=== PATIENT | female | born 2000 | race Caucasian/White ===

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

== ENCOUNTER → 2020-07-31 13:04 | Outpatient (CLI) | payer OTHER, SELFPAY ==
[2020-07-31 11:03] VITALS: BMI 25.7
[2020-07-31 16:01] LABS: Neisserai gonorrhoeae by PCR Negative (Negative); Probe Check PASS
[2020-07-31 16:03] LABS: Chlamydia Trachomatis by PCR POSITIVE (Negative)
== END ==
PROVIDERS: PCP Pediatrics; Referring Provider Nurse Practitioner Women's Health; Visit Provider Nurse Practitioner Women's Health
DX: Z11.3 Encounter for screening for infections with a predominantly sexual mode of transmission (principal)
CPT/HCPCS: 87491; 87591

== ENCOUNTER → 2020-08-28 16:38 | Outpatient (CLI) | payer OTHER, SELFPAY ==
[2020-08-28 13:46] VITALS: BMI 25.4
[2020-08-28 19:43] LABS: Chlamydia Trachomatis by PCR Negative (Negative); Neisserai gonorrhoeae by PCR Negative (Negative); Probe Check PASS; Sample Adequacy Control PASS; Specimen Processing Control PASS
== END ==
PROVIDERS: PCP Pediatrics; Referring Provider Obstetrics & Gynecology; Visit Provider Obstetrics & Gynecology
DX: A74.9 Chlamydial infection, unspecified (principal)
CPT/HCPCS: 87491; 87591

== ENCOUNTER → 2023-01-24 | Outpatient (CLI) | payer OTHER, MEDICAID, SELFPAY ==
[2023-01-24 15:58] LABS: Absolute Neutrophil Count 6.4 X10^3/uL (2.0-7.7); Basophil# 0.03 X10^3/uL; Basophil% 0.4 % (0-1); Eosinophil# 0.03 X10^3/uL; Eosinophils% 0.4 % (0-5); Hematocrit 37.6 % (37-47); Hemoglobin 12.9 g/dL (12.0-15.0); Lymphocyte % 19.9 % (19-41); Mean Corp Hgb Conc 34.3 g/dL (32-36); Mean Corpuscular Hgb 32.4 pg (27.0-32.0); Mean Corpuscular Volume 94.5 fL (81-99); Mean Platelet Vol. 9.8 fl (6.2-12.0); Monocyte# 0.38 X10^3/uL; Monocyte% 4.4 % (0-10); NRBC Flagged by Analyzer 0 % (0-5); Neutrophil # 6.38 X10^3/uL (2.7-7.7); Neutrophil % 74.4 % (47-70); Platelet Count 201 K/mm3 (150-450); RBC Distribution Width CV 11.9 % (11.6-14.6); RBC Distribution Width SD 41.5 fl (35.1-43.9); Red Blood Count 3.98 M/mm3 (4.2-5.4); White Blood Count 8.6 K/mm3 (4.4-11.0)
[2023-01-24 16:14] LABS: NATERA MAILED SPECIMEN
[2023-01-24 17:51] LABS: HIV - WCH Non-Reactive (Nonreactive); Hepatitis B Surface Antigen Non-Reactive (Nonreactive); Hepatitis C Antibody Non-Reactive (Nonreactive); Rubella IgG Reactive (Nonreactive); Syphilis Antibodies Non-reactive
[2023-01-27 21:12] LABS: Chlamydia By Nucleic Acid AMP Negative (Negative); Gonococcus By Nucleic Acid AMP Negative (Negative)
== END | disposition home or self-care (01) ==
PROVIDERS: PCP Pediatrics; Referring Provider Obstetrics & Gynecology; Visit Provider Obstetrics & Gynecology
DX: Z34.81 Encounter for supervision of other normal pregnancy, first trimester (principal)
CPT/HCPCS: 36415; 85025; 86703; 86762; 86780; 86803; 86850; 86900; 86901; 87086; 87088; 87340; 87491; 87591

== ENCOUNTER → 2023-05-16 | Outpatient (CLI) | payer OTHER, MEDICAID, SELFPAY ==
[2023-05-16 12:09] LABS: Absolute Lymphocyte Count 1.29 X10^3/uL (0.83-4.51); Absolute Neutrophil Count 7.1 X10^3/uL (2.0-7.7); Basophil# 0.05 X10^3/uL; Basophil% 0.5 % (0-1); Eosinophil# 0.04 X10^3/uL; Eosinophils% 0.4 % (0-5); Hematocrit 32.6 % (37-47); Hemoglobin 10.5 g/dL (12.0-15.0); Lymphocyte # 1.29 X10^3/ul (0.83-4.51); Lymphocyte % 13.8 % (19-41); Mean Corp Hgb Conc 32.2 g/dL (32-36); Mean Corpuscular Hgb 31.1 pg (27.0-32.0); Mean Corpuscular Volume 96.4 fL (81-99); Mean Platelet Vol. 9.9 fl (6.2-12.0); Monocyte# 0.49 X10^3/uL; Monocyte% 5.3 % (0-10); NRBC Flagged by Analyzer 0 % (0-5); Neutrophil # 7.09 X10^3/uL (2.7-7.7); Neutrophil % 76.1 % (47-70); Platelet Count 168 K/mm3 (150-450); RBC Distribution Width CV 12.6 % (11.6-14.6); RBC Distribution Width SD 44.3 fl (35.1-43.9); Red Blood Count 3.38 M/mm3 (4.2-5.4); White Blood Count 9.3 K/mm3 (4.4-11.0)
[2023-05-16 12:10] LABS: Glucose Challenge Gest 1H 50g 151 mg/dL (70-140)
[2023-05-16 12:42] LABS: HIV - WCH Non-Reactive (Nonreactive); Syphilis Antibodies Non-reactive
== END | disposition home or self-care (01) ==
LOC: LAB 11:13
PROVIDERS: PCP Pediatrics; Visit Provider Obstetrics & Gynecology
DX: Z13.1 Encounter for screening for diabetes mellitus (principal); Z3A.16 16 weeks gestation of pregnancy
CPT/HCPCS: 36415; 82950; 85025; 86703; 86780

== ENCOUNTER → 2023-05-27 | Outpatient (CLI) | payer OTHER, MEDICAID, SELFPAY ==
[2023-05-27 07:31] LABS: Glucose GTT-Gestation. Fasting 93 mg/dL (<105)
[2023-05-27 09:07] LABS: Glucose GTT-Gestational 1 Hr 171 mg/dL (<190)
[2023-05-27 09:39] LABS: Glucose GTT-Gestational 2 Hr 136 mg/dL (<165)
[2023-05-27 10:41] LABS: Glucose GTT-Gestational 3 Hr 117 L (<145)
== END | disposition home or self-care (01) ==
LOC: LAB 06:56
PROVIDERS: PCP Pediatrics; Referring Provider Obstetrics & Gynecology; Visit Provider Obstetrics & Gynecology
DX: Z13.1 Encounter for screening for diabetes mellitus (principal)
CPT/HCPCS: 36415; 82951; 82952

== ENCOUNTER 2023-06-10 13:35 | Outpatient (CLI) | payer OTHER, MEDICAID, SELFPAY ==
[2023-06-10 13:46] VITALS: BP 119/74; PULSE 101; PULSE 116; O2SAT 96
[2023-06-10 14:00] VITALS: TEMP 36.7; O2SAT 97
[2023-06-10 14:18] VITALS: BMI 31.8
[2023-06-10] MEDS: Lactated Ringers 1,000 ML 999 ML IV (14:20)
--- NOTE | 2023-06-10 14:27 | PN_ITS ---
Progress Note Patient presents for triage evaluation secondary to uterine contractions FHT: 140 Moderate variability reactive no decelerations category I tracing [place]: 2-3 Contractions Assessment and plan: FFN, GBS collected, Start IV and obtain labs and give IV fluid bolus, Start Procardia 10mg q 20minutes x 4 doses . See problem list details for additional plan information. Dr Melgar aware of above assessment and plan and agrees with plan due to Dr Rivera being in surgery. Referred to physician care due to labor. Assessment & Plan Assessment/Plan (1) uterine contractions: PLAN: see above for plan of care (2) Abnormal glucose: (3) Anemia: (4) : QUALIFIERS: Weeks of gestation: 30 weeks Qualified Code(s): Z3A.30 - 30 weeks gestation of (5) Supervision of normal : Visit Charges Office Visits / Consults: 52761 OV L3 Est Multi Select Codes Urinary/Genital Urinary/Genital CPT Codes: 26302-86 non-stress test Interp
[2023-06-10 14:32] LABS: Absolute Lymphocyte Count 1.54 X10^3/uL (0.83-4.51); Absolute Neutrophil Count 7.7 X10^3/uL (2.0-7.7); Basophil# 0.03 X10^3/uL; Basophil% 0.3 % (0-1); Eosinophil# 0.04 X10^3/uL; Eosinophils% 0.4 % (0-5); Hematocrit 35.1 % (37-47); Hemoglobin 11.6 g/dL (12.0-15.0); Lymphocyte # 1.54 X10^3/ul (0.83-4.51); Lymphocyte % 15.2 % (19-41); Mean Corpuscular Hgb 31.4 pg (27.0-32.0); Mean Corpuscular Volume 94.9 fL (81-99); Mean Platelet Vol. 9.4 fl (6.2-12.0); Monocyte# 0.59 X10^3/uL; Monocyte% 5.8 % (0-10); NRBC Flagged by Analyzer 0 % (0-5); Neutrophil # 7.68 X10^3/uL (2.7-7.7); Neutrophil % 75.8 % (47-70); Platelet Count 178 K/mm3 (150-450); RBC Distribution Width CV 13.9 % (11.6-14.6); RBC Distribution Width SD 46.9 fl (35.1-43.9); White Blood Count 10.1 K/mm3 (4.4-11.0)
[2023-06-10] MEDS: Betamethasone/Betamethasone 30 MG/5 ML Vial 12 MG IM (14:59)
[2023-06-10] MEDS: NIFEdipine 10 MG Capsule PO ×5 (15:01→20:14)
[2023-06-10 15:02] LABS: Fetal Fibronectin Negative; Record Kit Lot#, fFN E3050
--- NOTE | 2023-06-10 15:12 | US_ITS ---
STUDY: SECOND AND THIRD TRIMESTER OBSTETRICAL ULTRASOUND REASON FOR EXAM: Female, 22 years old growth ultrasound with cervical length -- 32.1 weeks with labor LMP: TECHNIQUE: Transabdominal TECHNICAL QUALITY: Adequate. PRIOR ULTRASOUND: None. FINDINGS: There is a single intrauterine fetus. The fetus is in a cephalic presentation. There is demonstrated cardiac activity with a heart rate of 158 bpm. There is a normal amniotic fluid volume. The largest amniotic fluid pocket measures 6.8 cm. The amniotic fluid index (BECKY) is 14.7 cm. The placenta is posterior There are Grade 1 placental changes. The cervix measures 4.4 cm in length. The bilateral adnexal regions are normal. BIOMETRY: BPD: 8.9 cm: 36 weeks, 1 days HC: 32.4 cm: 36 weeks, 5 days AC: 30.2 cm: 34 weeks, 1 days FL: 6.3 cm: 32 weeks, 3 days CI: 0.78 FL/BPD: 0.70 FL/HC: FL/AC: 0.12 HC/AC: 1.1 age by current US: 35 weeks, 5 days. ROBERTO by current US: July 10, 2023. Estimated weight: 2348 grams, +/- 352 grams, 92 %. Age by LMP: 32 weeks, 1 days. ROBERTO by LMP: August 04, 2023. ANATOMY: Not studied at this time due to age IMPRESSION: Viable intrauterine gestation approximately 36 gestational age. No significant abnormality Electronically Signed: David Pedraza MD at 17:19 EST , STUDY: Second and third TRIMESTER OBSTETRICAL ULTRASOUND REASON FOR EXAM: Female, 22 years old growth ultrasound with cervical length -- 32.1 weeks with labor LMP: TECHNIQUE: Transvaginal and transabdominal TECHNICAL QUALITY: Adequate. PRIOR ULTRASOUND: None. FINDINGS: Intrauterine gestation is noted currently in cephalic position. Cardiac activity seen with heart rate of 158 bpm. Amniotic fluid level is normal with largest pocket 6.8 cm and amniotic fluid index 14.7 Placenta is posterior and fundal. Cervical length is 4.4 cm. Cervical os is closed] age by current ultrasound is 35 weeks 5 days with ROBERTO July 10, 2023. Estimated weight is 23 48 g plus/-352 age by LMP is 32 weeks 1 day with ROBERTO August 04, 2023 US/OB Limited With Biometrics IMPRESSION: Viable intrauterine gestation approximately 36 weeks gestational age with no significant abnormality Electronically Signed: David Pedraza MD at 17:23 EST ,
[2023-06-10] MEDS: Lactated Ringers 1,000 ML 125 ML IV (15:20)
[2023-06-10 15:43] LABS: Bacteria 0 SEEN /hpf (None Seen); Mucous, Urine 0 SEEN /hpf (<or=2+); Red Blood Cells-Urine 0 SEEN /hpf (0-5); Squamous Epithelial Cells - UA 0 SEEN /hpf (5-10); White Blood Cells 0 SEEN /hpf (0-5)
[2023-06-10 15:52] LABS: Group B Strep DNA By PCR Negative (Negative); Internal Control PASS; Probe Check PASS; Specimen Processing Control PASS
[2023-06-10 15:58] LABS: Color, Urine Yellow (Yellow); Glucose, Dipstick Normal (Normal); Ketone-Dipstick 15 mg/dl (Negative); Leukocyte Esterase-Dipstick Negative /ul (Negative); Nitrite-Dipstick Negative (Negative); Occult Blood-Urine Negative /ul (Negative); Protein-Dipstick Negative (Negative); Urine Bilirubin Dipstick Negative (Negative); Urine Clarity Clear (Clear); Urine Urobilinogen Normal (Normal)
[2023-06-10 20:05] VITALS: BP 119/61; PULSE 114
[2023-06-10 20:06] VITALS: TEMP 37.1
[2023-06-10 20:07] VITALS: PULSE 112; O2SAT 95
[2023-06-10] MEDS: LACTATED RINGERS 500 ML 999 ML IV (20:14)
[2023-06-11] VITALS (11 sets, daily range): BP systolic 78–113; BP diastolic 42–69; PULSE 88–99; TEMP 36.5–37.1; O2SAT 79–98
[2023-06-11] MEDS: NIFEdipine 10 MG Capsule PO ×3 (00:13→10:31)
[2023-06-11] MEDS: Lactated Ringers 1,000 ML 125 ML IV (02:06)
--- NOTE | 2023-06-11 06:28 | US_ITS ---
HISTORY: 32 weeks 1 day, one variable noted to tracing. TECHNIQUE: Transabdominal pelvic ultrasound was performed. 42 images. COMPARISON: Prior day. FINDINGS: INTRAUTERINE GESTATION(s): Single. PRESENTATION: Cephalic. PLACENTA: Posterior, grade 1. No placenta previa. CERVIX: 3.9 cm, long and closed. HEART MOTION: 136 bpm. AMNIOTIC FLUID INDEX (BECKY): 18.6 cm. Maximum vertical pocket 6.4 cm. BIOPHYSICAL PROFILE (BPP): 8/8 -- Breathin/2. -- Movement: 2/2. -- Tone: 2/2. --BECKY: 2/2. IMPRESSION: Single living intrauterine with a normal biophysical profile score. Electronically Signed: Kely Mariano MD at 10:31 EST , HISTORY: 32 weeks 1 day, one variable noted to tracing. TECHNIQUE: Transabdominal pelvic ultrasound was performed. 42 images. COMPARISON: Prior day. FINDINGS: INTRAUTERINE GESTATION(s): Single. PRESENTATION: Cephalic. PLACENTA: Posterior, grade 1. No placenta previa. CERVIX: 3.9 cm, long and closed. HEART MOTION: 136 bpm. AMNIOTIC FLUID INDEX (BECKY): 18.6 cm. Maximum vertical pocket 6.4 cm. BIOPHYSICAL PROFILE (BPP): 8/8 -- Breathin/2. -- Movement: 2/2. -- Tone: 2/2. --BECKY: 2/2. US/Biophysical Prof W/O Non Stres IMPRESSION: Single living intrauterine with a normal biophysical profile score. Electronically Signed: Kely Mariano MD at 10:32 EST ,
--- NOTE | 2023-06-11 08:17 | PCM.PN.BLA ---
Progress Note pt is sitting up in bed without complaints. She states that the has not felt contractions in a while. Dr. Rivera ordered a BPP this am for a variable decel earlier this am. She denies lof, vaginal bleeding, or dec fm. current tracing: FHT: 130's-140's Moderate variability reactive no decelerations category I tracing [place]: no Contractions A/P: Threatened labor hold procardia this am nurse to call with results of bpp and rpt cervical length will need 2nd dose of celestone at 3pm will discuss using prophylactic procardia at home for a week. pt has office visit on Friday for re-eval and wants to go home if possible between her BPP and next dose of celestone. will decide based on results
[2023-06-11] MEDS: Betamethasone/Betamethasone 30 MG/5 ML Vial 12 MG IM (11:01)
== END 2023-06-11 11:10 | disposition home or self-care (01) ==
LOC: WPOUT 13:41 → WP 13:41
PROVIDERS: Obstetrics & Gynecology; PCP Pediatrics; Referring Provider Advanced Practice Midwife; Visit Provider Advanced Practice Midwife
DX: O60.00 Preterm labor without delivery, unspecified trimester (principal); Z3A.36 36 weeks gestation of pregnancy
CPT/HCPCS: 96360; 96361; 36415; 59025; 59050; 76816; 76817; 76819; 81001; 82731; 85025; 87081; 87086; 87653; 96372; 99221; J7120; G0378; J0702

== ENCOUNTER → 2023-06-17 | Outpatient (CLI) | payer OTHER, MEDICAID, SELFPAY ==
[2023-06-17 08:29] LABS: Glucose GTT-Gestation. Fasting 90 mg/dL (<105)
[2023-06-17 09:24] LABS: Glucose GTT-Gestational 1 Hr 162 mg/dL (<190)
[2023-06-17 10:14] LABS: Glucose GTT-Gestational 2 Hr 174 mg/dL (<165)
[2023-06-17 11:10] LABS: Glucose GTT-Gestational 3 Hr 110 L (<145)
== END | disposition home or self-care (01) ==
LOC: LAB 07:18
PROVIDERS: Referring Provider Obstetrics & Gynecology; Visit Provider Obstetrics & Gynecology
DX: Z13.1 Encounter for screening for diabetes mellitus (principal)
CPT/HCPCS: 36415; 82951; 82952

== ENCOUNTER → 2023-06-27 | Outpatient (CLI) | payer OTHER, MEDICAID, SELFPAY ==
[2023-06-27 11:31] LABS: ROM Internal Control Test YES-OK TO RESULT pt. (Internal QC); ROM Patient Test Negative (Negative); Record Kit Lot#, ROM+ K1374
== END | disposition home or self-care (01) ==
LOC: LABSPEC 11:09
PROVIDERS: Visit Provider Obstetrics & Gynecology
DX: N89.8 Other specified noninflammatory disorders of vagina (principal)
CPT/HCPCS: 84112

== ENCOUNTER 2023-06-30 19:33 | Outpatient (CLI) | payer OTHER, MEDICAID, SELFPAY ==
[2023-06-30 19:43] VITALS: BMI 32.4
[2023-06-30 19:52] VITALS: BP 124/72; PULSE 91; TEMP 36.8; O2SAT 98
[2023-06-30 20:32] LABS: ROM Internal Control Test YES-OK TO RESULT pt. (Internal QC); ROM Patient Test Negative (Negative); Record Kit Lot#, ROM+ K1374
[2023-06-30 21:41] VITALS: PULSE 83; O2SAT 97
--- NOTE | 2023-06-30 22:13 | OB.TRI.PN_ITS ---
Progress Notes Date of Service: 06/30/23 Progress Note: Patient presents for triage evaluation secondary to uterine contractions FHT: 135 Moderate variability reactive no decelerations category I tracing [place]: irregular Contractions Assessment and plan: Reactive NST, no cervical change, reassuring maternal and status patient discharged to home to follow-up at next appointment. See problem list details for additional plan information. Laboratory Studies: Laboratory Tests 06/30/23 Range/Units 20:00 Vag Amniotic Fld Detect Negative (Negative) Charges/Coding Multi Select Codes Urinary/Genital Urinary/Genital CPT Codes: 00939-72 non-stress test Interp Assessment & Plan (1) uterine contractions: COMMENT: no cervical change PLAN: ROM negative No cervical change Cat 1 FHT D/C Home (2) growth abnormality: COMMENT: 92% overall and AC 91- repeat 3 hr gtt NL (3) Abnormal glucose: COMMENT: nl 3 hr GTT (4) Anemia: COMMENT: OTC Fe daily (5) Family history of defect: COMMENT: limb body wall defect for sisters child (6) : QUALIFIERS: Weeks of gestation: 34 weeks Qualified Code(s): Z3A.34 - 34 weeks gestation of COMMENT: neg gbs at 32 weeks, nl anatomy, negative NIPT declined carrier and afp screening, male (7) Supervision of normal : COMMENT: PRR ROBERTO 08/04/23 boy jessicamackenzie boyfriend Isamar, mom- ahsan
== END 2023-06-30 22:20 | disposition home or self-care (01) ==
LOC: WPPAT 19:40 → WP 19:41
PROVIDERS: Visit Provider Advanced Practice Midwife
DX: O60.03 Preterm labor without delivery, third trimester (principal); Z3A.34 34 weeks gestation of pregnancy; O99.02 Anemia complicating childbirth; O99.814 Abnormal glucose complicating childbirth; D64.9 Anemia, unspecified
CPT/HCPCS: 59025; 59050; 84112; 99221; G0378

== ENCOUNTER → 2023-07-11 | Outpatient (CLI) | payer OTHER, MEDICAID, SELFPAY ==
--- OUTSIDE RECORDS SUMMARY | 2023-07-11 12:49 | XMS RPT_ITS | CCD ---
Author Name Unknown Address [address] [place] [address] Organization [facility] Care Team Providers Care Hospice Social Worker Name Role Phone Veale PAC, Merrill A Unavailable Ezequiel Maldonado Unavailable Unavailable Newbill Ezequielcielo Castano Unavailable Unavailable Vitaly Denton Unavailable Unavailable OzzylEzequiel Unavailable Unavailable ArshbillEzequiel Unavailable Unavailable Vitaly Denton Unavailable Unavailable NewbillEzequiel Unavailable Unavailable Vitaly Denton Unavailable Unavailable OzzylEzequiel Unavailable Unavailable CLOVIS VELASQUEZ Attending Unavailab SHIKHA Hays Primary Care Unavai Vitaly Valdovinos Unavailable Unavailable Unavailable No, Physician Primary Care Provider Unavailabl Shikha Eduardo MD Unavailable NO, PHYSICIAN Primary Care Unavailable ALEXIS KIRAN, TITO Referring Unavailable NO, PHYSICIAN Primary Care Unavailable ALEXIS KIRAN, TITO Attending Unavailable ALEXIS KIRAN, TITO Attending Unavailable NO, PHYSICIAN Primary Care Unavailable NO, PHYSICIAN Primary Care Unavailable ALEXIS KIRAN, TITO Attending Unavailable NO, PHYSICIAN Primary Care Unavailable RYANN ESPINOZA JR.EMIAH Attending Unavailable Vitaly Denton Unavailable Unavailable Required, No Pcp Unavailable Unavailable Jorge Carbajal Unavailable Unavailable None, No PCP Unavailable Unavailable Cheryl Prasad Attending Unavailable Mirna Prasadna Referring Unavailable KARELY MARISCALA Attending Unavailable FRIED, MARIETTA Referring Unavailable ASYA, DO SAWYER CALLAHAN Attending Unavailable ASYA, DO SAWYER CALLAHAN Referring Unavailable Cheryl Prasad Attending Unavailable Jorge Carbajal Attending Unavailable ALLISON MAGUIRE Referring ALLISON Lyle Attending Bob Sr, [facility] Unavailable Medications Current Medications Medication Drug Class(es) Dates Sig (Normalized) Sig (Original) Ethinyl Estradiol / Ferrous fumarate / Norethindrone (2 sources) Estrogen Start: 12-12-2021 Junel FE 07/26, 28, 1 mg-20 mcg (21)/75 mg (7) per tablet TAKE 1 TABLET DAILY FOR 21 DAYS, THEN 7 TABLET-FREE DAYS REPEAT. 0 12/12/2021 Active Completed/Discontinued Medications Medication Drug Class(es) Dates Sig (Normalized) Sig (Original) CONTROL (1 source) Start: 11-12-2017 CONTROL CONTROL Merrill Alexsandra Dunnkamron RUEDA Etonogestrel-Ethinyl Estradiol 0.12-0.015 MG/24HR Vaginal Ring (3 sources) Start: 07-20-2021 Etonogestrel-Ethinyl Estradiol 0.12-0.015 MG/24HR Vaginal Ring INSERT 1 RING VAGINALLY DIRECTED. REMOVE AFTER 3 WEEKS & WAIT 7 DAYS BEFORE INSERTING A NEW RING Quantity: 3 Refills: 3 Ordered: 20-Jul-2021 Sawyer Sky DO Start : 20-Jul-2021 Active Kami FE 07/26 1-20 MG-MCG Oral Tablet (1 source) Start: 11-08-2021 take 1 tablet by mouth once daily, then take 7 tablets by mouth once daily Kami FE 07/26 1-20 MG-MCG Oral Tablet TAKE 1 TABLET DAILY FOR 21 DAYS, THEN 7 TABLET-FREE DAYS; REPEAT. Quantity: 1 Refills: 11 Ordered: 08-Nov-2021 Loida ASSISTANT THERAPY AIDE-CNM, ASSISTANT THERAPY AIDE-CAR USHER, [place] Start : 08-Nov-2021 Active ibuprofen 200 mg oral tablet (1 source) Nonsteroidal Anti-inflammatory Drug Start: 11-12-2017 ADVIL 200 MG CAPS as needed for pain IBUPROFEN [id number] Merrill Ramirez MOHIT No Reported Medications (5 sources) No Reported Medications Quantity: 0 Refills: 0 Ordered: 27-Mar-2022 DO Active prochlorperazine 10 mg oral tablet (1 source) Phenothiazine Start: 12-10-2022 take 1 tablet by mouth every six hours Prochlorperazine Maleate 10 MG Oral Tablet TAKE 1 TABLET EVERY 6 HOURS NEEDED FOR NAUSEA. Quantity: 60 Refills: 0 Ordered: 10-Dec-2022 Cheryl Prasad MD Start : 10-Dec-2022 Active Problems Active Problems Problem Classification Problem Date Documented Date Episodic/Chronic Bacterial infection; unspecified site (10 sources) Chlamydial infection; Translations: [Unspecified chlamydial infection] Episodic Contraceptive and procreative management (20 sources) Patient encounter status; Translations: [Unspecified contraceptive management] Episodic Inflammatory diseases of female pelvic organs (10 sources) Bacterial vaginosis; Translations: [Vaginitis and vulvovaginitis, unspecified] Episodic Menstrual disorders (10 sources) Disorder of menstruation; Translations: [Unspecified disorders of menstruation and other abnormal bleeding from female genital tract] Chronic Other connective tissue disease (1 source) Plantar fasciitis of left foot; Translations: [Plantar fascial fibromatosis] Episodic Other connective tissue disease (1 source) Left achilles tendonitis; Translations: [Achilles tendinitis, left leg] Episodic Other female genital disorders (10 sources) Abnormal uterine bleeding; Translations: [Unspecified disorders of menstruation and other abnormal bleeding from female genital tract] Chronic Other female genital disorders (9 sources) Vaginal discharge; Translations: [Leukorrhea, not specified as infective] Episodic Other non-traumatic joint disorders (1 source) Pain in right knee; Translations: [Pain in right knee] Onset: 11-12-2017 11-12-2017 Episodic Other and delivery including normal (5 sources) Urine test positive; Translations: [ examination or test, positive result] Onset: 12-11-2022 Episodic Other screening for suspected conditions (not mental disorders or infectious disease) (20 sources) test negative; Translations: [ examination or test, negative result] Onset: 12-11-2022 Episodic Residual codes; unclassified (10 sources) H/O: miscarriage; Translations: [Personal history of other genital system and obstetric disorders] Episodic Past or Other Problems Problem Classification Problem Date Documented Da te Episodic/Chronic Genitourinary symptoms and ill-defined conditions (7 sources) Scalding pain on urination ; Translations: [Dysuria] Onset: 09-04-2022 09-04-2022 Episodic Residual codes; unclassified (1 source) H/O: ; Translations: [Personal history of other genital system and obstetric disorders] Resolved: 12-10-2022 Episodic Unclassified (1 source) Problem Unclassified (10 sources) Finding of menstrual bleeding; Translations: [Menstruation] Results Test Name Value Interpretation Reference Range Facil ity Vital Signs Date Time Vital Sign Value Performing Clinician Facility 12-10-2022 13:31-0400 Body height 160.02 cm No PCP None [facility] Work Phone: 12-10-2022 13:31-0400 Body mass index (BMI) [Ratio] 26.93 kg/m2 No PCP None [facility] Work Phone: 12-10-2022 13:31-0400 Body surface area Derived from formula 1.72 m2 No PCP None [facility] Work Phone: 12-10-2022 13:31-0400 Body weight 68.95 kg No PCP None [facility] Work Phone: 12-10-2022 13:31-0400 Diastolic blood pressure 64 mm[Hg] No PCP None [facility] Work Phone: 12-10-2022 13:31-0400 Systolic blood pressure 118 mm[Hg] No PCP None [facility] Work Phone: 09-04-2022 19:05-0500 Body height 160 cm No Pcp Required [facility] 09-04-2022 19:05-0500 Body temperature 98.24 [degF] No Pcp Required [facility] 09-04-2022 19:05-0500 Diastolic blood pressure 78 mm[Hg] No Pcp Required [facility] 09-04-2022 19:05-0500 Heart rate 90 /min No Pcp Required [facility] 09-04-2022 19:05-0500 Respiratory rate 16 /min No Pcp Required [facility] 09-04-2022 19:05-0500 SaO2% (BldA) [Mass fraction] 97 % No Pcp Required [facility] 09-04-2022 19:05-0500 Systolic blood pressure 117 mm[Hg] No Pcp Required [facility] 07-25-2022 09:10-0500 Body height 160.02 cm Vitaly Denton [facility] [address] Work Phone: 07-25-2022 09:10-0500 Body mass index (BMI) [Ratio] 27.1 kg/m2 Vitaly Denton [facility] [address] Work Phone: 07-25-2022 09:10-0500 Body surface area Derived from formula 1.73 m2 Vitaly Denton [facility] [address] Work Phone: 07-25-2022 09:10-0500 Body weight 69.4 kg Vitaly Denton [facility] [address] Work Phone: 07-25-2022 09:10-0500 Diastolic blood pressure 70 mm[Hg] Vitaly Denton [facility] [address] Work Phone: 07-25-2022 09:10-0500 Systolic blood pressure 116 mm[Hg] Vitaly Denton [facility] [address] Work Phone: 03-27-2022 15:20-0400 Body height 160.02 cm Vitaly Denton Work Phone: [facility] [address] Work Phone: 03-27-2022 15:20-0400 Body mass index (BMI) [Ratio] 26.59 kg/m2 Vitaly Denton Work Phone: [facility] [address] Work Phone: 03-27-2022 15:20-0400 Body surface area Derived from formula 1.71 m2 Vitaly Denton Work Phone: [facility] [address] Work Phone: 03-27-2022 15:20-0400 Body weight 68.1 kg Vitaly Denton Work Phone: [place] [address] [address] Work Phone: 03-27-2022 15:20-0400 Diastolic blood pressure 74 mm[Hg] Vitaly Denton Work Phone: [place] [address] [place] Work Phone: 03-27-2022 15:20-0400 Systolic blood pressure 100 mm[Hg] Vitaly Denton Work Phone: [address] Work Phone: 03-08-2022 16:13-0400 Body temperature 98.29 [degF] Tito Espinoza Jr., DPM Work Phone: [facility] 03-08-2022 16:13-0400 Diastolic blood pressure 65 mm[Hg] Tito Espinoza Jr., DPM Work Phone: [facility] 03-08-2022 16:13-0400 Heart rate 67 /min Tito Espinoza Jr., DPM Work Phone: [facility] 03-08-2022 16:13-0400 Systolic blood pressure 105 mm[Hg] Tito Espinoza Jr., DPM Work Phone: [facility] 11-08-2021 09:50-0400 Body height 160.02 cm Vitaly Denton Work Phone: [place] [address] [place] Work Phone: 11-08-2021 09:50-0400 Body mass index (BMI) [Ratio] 26.36 kg/m2 Vitaly Denton Work Phone: [place] [address] [place] Work Phone: 11-08-2021 09:50-0400 Body surface area Derived from formula 1.71 m2 Vitaly Jayashree Corrie Work Phone: [place] [address] [place] Work Phone: 11-08-2021 09:50-0400 Body weight 67.5 kg Vitaly M Corrie Work Phone: [place] [address] [place] Work Phone: 11-08-2021 09:50-0400 Diastolic blood pressure 62 mm[Hg] Vitaly Reavesighton Work Phone: [place] [address] [facility] Work Phone: 11-08-2021 09:50-0400 Systolic blood pressure 110 mm[Hg] Vitaly Willetton Work Phone: [place] [address] [facility] Work Phone: 11-01-2021 10:01-0400 Body height 160.02 cm Vitaly Blanc Corrie Work Phone: [place] [address] [facility] Work Phone: 11-01-2021 10:01-0400 Body mass index (BMI) [Ratio] 26.28 kg/m2 Vitayl Reavesighton Work Phone: [place] [address] [facility] Work Phone: 11-01-2021 10:01-0400 Body surface area Derived from formula 1.7 m2 Vitaly Reavesighton Work Phone: [place] [address] [place] Work Phone: 11-01-2021 10:01-0400 Body weight 67.3 kg Vitaly Blanc Corrie Work Phone: [place] [address] [place] Work Phone: 11-01-2021 10:01-0400 Diastolic blood pressure 70 mm[Hg] Vitaly Denton Work Phone: [place] [address] [place] Work Phone: 11-01-2021 10:01-0400 Systolic blood pressure 102 mm[Hg] Vitaly Denton Work Phone: [place] [address] [address] Work Phone: 07-20-2021 11:05-0500 Body height 160.02 cm Vitaly Denton Work Phone: [facility] [place] [address] [place] Work Phone: 07-20-2021 11:05-0500 Body mass index (BMI) [Ratio] 24.6 kg/m2 Vitaly Denton Work Phone: [place] [address] [place] Work Phone: 07-20-2021 11:05-0500 Body surface area Derived from formula 1.66 m2 Vitaly Denton Work Phone: [facility] [address] [place] Work Phone: 07-20-2021 11:05-0500 Body temperature 97.8 [degF] Vitlay Denton Work Phone: [place] [address] [place] Work Phone: 07-20-2021 11:05-0500 Body weight 63 kg Vitaly Denton Work Phone: [place] [address] [place] Work Phone: 07-20-2021 11:05-0500 Diastolic blood pressure 68 mm[Hg] Vitaly Denton Work Phone: [facility] [place] [address] [place] Work Phone: 07-20-2021 11:05-0500 Systolic blood pressure 100 mm[Hg] Vitaly Denton Work Phone: [facility] [place] [address] [place] Work Phone: NEGATED: Highlighted [id number] 14:11-0400 BMI (Body Mass Index) 24 kg/m2 Dickson ARANDA [facility] Work Phone: NEGATED: Highlighted [id number] 14:0400 BP Diastolic 71 mm[Hg] Dickson Micheline OT-C [facility] [place] [facility] Work Phone: NEGATED: Highlighted [id number] 14:110400 BP Systolic 111 mm[Hg] Dickson Micheline OT-C [facility] [place] [facility] Work Phone: NEGATED: Highlighted [id number] 14:040 Height 160.02 cm Dickson Micheline OT-C [facility] Work Phone: NEGATED: Highlighted [id number] 14: Height 160 cm Dickson Micheline OT-C [facility] [place] [facility] Work Phone: NEGATED: Highlighted [id number] 14:11-0400 Pulse (Heart Rate) 71 /min Dickson Micheline OT-C [facility] [place] [facility] Work Phone: NEGATED: Highlighted [id number] Weight 61.24 kg Dickson Micheline OT-C [facility] [place] [facility] Work Phone: NEGATED: Highlighted [id number] 14:0400 Weight 61 kg Dickson Micheline OT-C [facility] [place] [facility] Work Phone: Encounters Encounter Date Encounter Type Care Provider Facility Start: 03-06-2023 ambulatory ALLISON Copeland [facility] Start: 12-11-2022 ambulatory [facility] Facility: [id number] Start: 12-10-2022 Office outpatient vi sit 15 minutes No PCP None [address] Work Phone: Start: 12-10-2022 ambulatory [facility] Facility: [id number] Start: 09-04-2022 End: 09-04-2022 Emergency department patient visit Jorge Carbajal [facility] Start: 09-04-2022 AUDIT No [facility]CP [facility] Work Phone: Start: 07-25-2022 Periodic preventive med est patient 18-39 yrs Vitaly Denton [facility] Work Phone: Start: 07-25-2022 ambulatory MARIETTA MARISCAL Facility:[id number] Start: 03-29-2022 Chart Update Vitaly Lagunas [employer] Work Phone: [facility] Work Phone: Start: 03-28-2022 Chart Update Vitaly Lagunas [employer] Work Phone: [facility] Work Phone: Start: 03-27-2022 Office outpatient vi sit 25 minutes Vitaly Jayashree Denton Work Phone: [facility] Work Phone: Start: 03-27-2022 ambulatory DO SAWYER SKY Fac ility:[id number] Start: 03-08-2022 End: 03-08-2022 ambulatory TITO ESPINOZA JR. [facility] Start: 03-08-2022 End: 03-08-2022 Office outpatient visit 10 minutes Tito Espinoza DPM Work Phone: [facility] Procedures Date Procedure Procedure Detail Performing Clinician Start: 11-12-2017 End: 11-12-2017 Adolescent tobacco screening was negative - non user Merrill A Veale PAC Work Phone: Start: 11-12-2017 End: 11-12-2017 X-ray exam of knee, 1 or 2 Merrill A Veale PAC Work Phone: Dilation and curettage Shadi Denton Work Phone: Plan of Treatment Date Care Activity Detail Author Start: 02-15-2023 Tetanus vaccination Tetanus: Every 10yrs [facility] Start: 07-25-2022 Patient encounter procedure ANNUAL, Provider: [place]etta Mariscal, Status: Pen, Time: 9:00 AM [facility] Work Phone: Start: 07-22-2022 Patient encounter procedure ANNUAL, Provider: Sawyer Sky, Status: Pen, Time: 10:30 AM [facility] [employer] Work Phone: Start: 07-20-2022 History and physical examination, annual for health maintenance Wellness Visit [facility] Start: 04-17-2022 End: 04-17-2022 Patient encounter procedure 04/17/2022 Office Visit Podiatry Tito Espinoza Jr., DPM [address] [place] [address] [facility] Start: 04-10-2022 FUV, Provider: Sawyer Sky, Status: Pen, Time: 3:45 PM FUV, Provider: Sawyer Sky, Status: Pen, Time: 3:45 PM [facility] [employer] Work Phone: Start: 03-07-2022 Influenza vaccination Sequential Influenza Vaccine (#1) [facility] Start: 2018 Hepatitis C screening Hepatitis C Screening [facility] Start: 11-12-2017 End: 11-12-2017 Appointment Appointment [facility] Work Phone: Start: 2015 HIV screening HIV Screening [facility] Start: 2012 Depression screening using PHQ-9 (Patient Health Questionnaire 9) score Depression Screening (PHQ-2/9) [facility] Start: 2000 COVID-19 Vaccine (#1) COVID-19 Vaccine (#1) [facility] Start: 2000 Screening for Chlamydia trachomatis Chlamydia Screening [facility] Start: 2000 Screening for malignant neoplasm of cervix Pap Smear [facility] Immunizations Immunization Date Immunization Notes Care Provider Fa cility No information available. Dickson Tobias OT-C [facility] Work Phone: Payers Date Payer Category Payer Private Health Insurance [id number] 2017 Unknown 2017 Private Health Insurance 2000 Unknown [id number] 2.16. [id number] 2000 Unknown [id number] 2.16. [id number] 2000 Unknown [id number] 2.16. [id number] 2000 Unknown [id number] 2.16. [id number] 2000 Unknown [id number] 2.16. [id number] 2000 Unknown [id number] 2.16. [id number] 2000 Unknown [id number] 2.16. [id number] 2000 Unknown [id number] 2.16. [id number] 2000 Unknown [id number] 2.16. [id number] 2000 Unknown [id number] 2.16.8 [id number] 2000 Unknown [id number] 2.16.8 [id number] 2000 Unknown [id number] 2.16. [id number] Medicaid [id number] Social History Date Type Detail Facility Start: 03-08-2022 Sexually active Sexually active [address] Work Phone: Start: 01-25-2022 Tobacco smoking status NHIS Never smoked tobacco [facility] Start: 01-25-2022 Tobacco use and exposure Smokeless tobacco non-user [facility] Start: 03-08-2022 Alcohol intake Current drinke r of alcohol (finding) [facility] Start: 04-08-2021 History SDOH Alcohol Frequency 1 [facility] Start: 12-28-2021 Alcohol Comment rarley [facility] Start: 2000 Sex Assigned At Not on file [facility] Start: 02-26-2022 End: 03-08-2022 Exposure to SARS-CoV-2 (event) Not sure [facility] Tobacco smoking consumption unknown [facility] NEGATED: Highlighted rowStart: 11-12-2017 End: 11-12-2017 Alcohol use ETOH USE No [facility] Work Phone: NEGATED: Highlighted rowStart: 11-12-2017 End: 11-12-2017 Details of drug misuse behavior DRUG USE No [facility] Work Phone: NEGATED: Highlighted rowStart: 11-12-2017 End: 11-12-2017 Employment detail OCCUPATION#1 student [facility] Work Phone: NEGATED: Highlighted rowStart: 11-12-2017 End: 11-12-2017 How many days of moderate to strenuous exercise, like a brisk walk, did you do in the last 7 days? EXERCISEFREQ 5 days per week [facility] Work Phone: NEGATED: Highlighted rowStart: 11-12-2017 End: 11-12-2017 Assertion Never smoker [facility] Work Phone: History of Present illness Narrative 10-05-2022 Note Date & Type Note Facility 10-05-2022 History of Present illness Narrative Sharron is a 22-year-old 2 para 0 who comes in for confirmation of . She reports that this is an unplanned and believes that her last menstrual period was the first week of October. 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 Patient reports that this is a welcomed . She reports that she has been feeling nauseous and would like something for the nausea. She reports that she is experiencing breast tenderness no cramping bleeding or abnormal discharge. [facility] Work Phone: History of Present illness Narrative 03-08-2022 Tito Espinoza Jr., DAX - 03/08/2022 4:52 PM EDT Note Date & Type Note Facility 03-08-2022 History of Presen t illness Narrative Heel pain. -year-old female with heel pain. She states that she has been using. Her pain is substantially decreased but not fully gone. Physical Vascular: DP PT pulses are easily palpable 2-4. CFT is fair no edema. Neuro: Light touch is normal. Musculoskeletal please able to toes. Still with pain from fascial origin though decreasing monthly. Negative lateral hand squeeze test no Achilles pain ankle is full. Assessment plan: Patient is a pleasant 21-year-old with acute on chronic Planter fasciitis and heel pain. -Today did refill her meloxicam 31 days 50 mg daily. If no better in the next month consider MRI documented in this encounter [facility] History of Present illness Narrative 02-04-2022 Note Date & Type Note Facility 02-04-2022 History of Present illness Narrative 21-year-old presents for regulating for last 2 months. Patient and she is been off her pills about 4 months. Patient notes she just would miss some doses so she took her self off. Patient notes she is in relationship with her boyfriend and they are okay if they got . Patient not sure if she actually wants to try or not. Patient has last 2 months she is had dizziness she is lightheaded days where she has had to change her pad every 2 3 hours where will be soaked. Patient feel little fatigued but overall doing well. Patient has remote history of an STI. Patient would like to just get checked out. Patient is no other acute concerns [facility] Work Phone: History of Present illness Narrative 07-07-2021 Note Date & Type Note Facility 07-07-2021 History of Present illness Narrative Pt. presents for annual exam.Normal pap 07/2021irregular bleeding resolved, decided with BF to d/c contraception, open to pregnancyNo complaints or concerns [facility] Work Phone: Evaluation note Note Date & Type Note Facility documented in this encounter [facility] History of Present illness Narrative Note Date & Type Note Facility History of Present illness Narrative Pt. reports increased vaginal d/c, states that it has odor sometimes and then resolvesTx for BV recently, using Nuvaring for contraception and not sure she likes it, but wants to continue for now [employer] Phone: History of Present illness Narrative Note Date & Type Note Facility History of Present illness Narrative Pt. wants to d/c nuvaring and go back to OCP. Disc. transitioning and how to avoid during the transition. [facility] Work Phone: History of Present illness Narrative Note Date & Type Note Facility History of Present illness Narrative 21-year-old G0 presents for annual exam. Patient safe home denies abuse. Patient notes her control is doing okay but she sometimes misses doses like discussed other options. Patient sexually active without concern. Nothing about fertility for a while. Lives with the parents but working on buying a house in the near future. Patient working on physical activity. Patient unsure if she got the Gardasil vaccine. Patient has no other acute concerns [employer] [employer] Work Phone: Advance Directives There may be information available, but it has not been provided by the sender. No Advanced Directives Records FoundNo Advanced Directives Records FoundNo Advanced Directives Records FoundNo Advanced Directives Records FoundNo Advanced Directives Records FoundNo Advanced Directives Records FoundNo Advanced Directives Records Found Assessments There may be information available, but it has not been provided by the sender. Review of System There may be information available, but it has not been provided by the sender. Family History No Family History Records FoundUnknown Family Member Name Dates Details Family history of hypertensi on: Grandparent(V17.49, Z82.49) Status:Active Family history of myocardial infarction: Grandfather(V17.3, Z82.49) Status:Active Unknown Family Member Name Dates Details Family history of hypertensi on: Grandparent(V17.49, Z82.49) Status:Active Family history of myocardial infarction: Grandfather(V17.3, Z82.49) Status:Active Unknown Family Member Name Dates Details Family history of hypertensi on: Grandparent(V17.49, Z82.49) Status:Active Family history of myocardial infarction: Grandfather(V17.3, Z82.49) Status:Active Unknown Family Member Name Dates Details Family history of hypertensi on: Grandparent(V17.49, Z82.49) Status:Active Family history of myocardial infarction: Grandfather(V17.3, Z82.49) Status:Active Unknown Family Member Name Dates Details Family history of hypertensi on: Grandparent(V17.49, Z82.49) Status:Active Family history of myocardial infarction: Grandfather(V17.3, Z82.49) Status:Active Unknown Family Member Name Dates Details Family history of hypertensi on: Grandparent(V17.49, Z82.49) Status:Active Family history of myocardial infarction: Grandfather(V17.3, Z82.49) Status:Active Unknown Family Member Name Dates Details Family history of hypertensi on: Grandparent(V17.49, Z82.49) Status:Active Family history of myocardial infarction: Grandfather(V17.3, Z82.49) Status:Active Unknown Family Member Name Dates Details Family history of hypertensi on: Grandparent(V17.49, Z82.49) Status:Active Family history of myocardial infarction: Grandfather(V17.3, Z82.49) Status:Active Unknown Family Member Name Dates Details Family history of hypertensi on: Grandparent(V17.49, Z82.49) Status:Active Family history of myocardial infarction: Grandfather(V17.3, Z82.49) Status:Active Unknown Family Member Name Dates Details Family history of hypertensi on: Grandparent(V17.49, Z82.49) Status:Active Family history of myocardial infarction: Grandfather(V17.3, Z82.49) Status:Active Summary Purpose Chief Complaint PT HERE TODAY WITH CONCERNS OF AN ODOR AND DISCHARGE. PT STATES SHES HAVING A WHITE COTTAGE CHEESE LIKE DISCHARGE. PT STATES THE ODOR FOR HER IS JUST AN ABNORMAL ODOR NO FISHY SMELL. PT DENIES ANY ITCHING OR BURNING. LMP 10/13/21Pt here today wants to switch her control. Pt states she is on the NUVA RING, and that is whats causing her discharge and odor. PT would like to switch to the control pill. LMP 10/13/21PT IS HERE TODAY FOR HER ANNUAL EXAM. HAS NO CONCERNS. FIRST PAP. DOES A SELF BREAST CHECK. LMP: 1PT IS HERE TODAY FOR HAD A PERIOD FOR OVER 2 MONTHS. STATES THIS IS THE FIRST TIME IT HAS EVER HAPPENED. MOST OF THE TIME IT WAS HEAVY. HAD SOME CLOTTING AND MILD CRAMPING. WENT OFF THE ORAL B/C IN NOVEMBER OR DECEMBER AND STARTED HER PERIOD THE END OF JANUARY BEGINNING OF FEBRUARY.* Patient is here for yearly exam. Patient does NOT DO self breast exams regularly. LMP 06/21/22 * PT HAS NO CONCERNS. Patient here today for amenorrhea. She states her last period was sometime the first or second weekof October. She states her periods are regular. She did have a miscarriage in 2018 and had to have D&C. She has nausea and would like some medications, she has breast tenderness and denies crampingor bleeding. Additional Source Comments INFORMATION SOURCE (unrecogn ized section and content) DATE CREATED AUTHOR AUTHOR'S ORGANIZ ATION 04/15/2021 [facility] DATE CREATED AUTHOR AUTHOR'S ORGANIZ ATION 03/09/2022 [facility] DATE CREATED AUTHOR AUTHOR'S ORGANIZ ATION 12/17/2022 [facility] DATE CREATED AUTHOR AUTHOR'S ORGANIZ ATION 12/17/2022 [facility] DATE CREATED AUTHOR AUTHOR'S ORGANIZ ATION 12/17/2022 [employer] DATE CREATED AUTHOR AUTHOR'S ORGANIZ ATION 03/26/2023 [facility] Reason for Visit (unrecogniz ed section and content) Care Teams (unrecognized sec tion and content) <item> Privacy Markings (unrecogniz ed section and content) Section Author: Kathie Lane PROHIBITION ON REDISCLOSURE OF CONFIDENTIAL INFORMATION This notice accompanies a disclosure of information concerning a client made to you with the consent of such client. FOR RECORDS PERTAINING TO PATIENTS WHO ARE OR HAVE BEEN ENROLLED IN A CHEMICAL DEPENDENCY/SUBSTANCEABUSE PROGRAM, SOME INFORMATION MAY BE OMITTED. This clinical summary was aggregated from multiple sources. Caution should be exercised in using it in the provision of clinical care. This summary normalizes information from multiple sources, and as a consequence, information in this document may materially change the coding, format and clinical context of patient data. In addition, data may be omitted in some cases. CLINICAL DECISIONS SHOULD BE BASED ON THE PRIMARY CLINICAL RECORDS. [facility]. provides no warranty or guarantee of the accuracy or completeness of information in this document.
== END | disposition home or self-care (01) ==
LOC: LABSPEC 12:12
PROVIDERS: Referring Provider Obstetrics & Gynecology; Visit Provider Obstetrics & Gynecology
DX: Z34.90 Encounter for supervision of normal pregnancy, unspecified, unspecified trimester (principal)
CPT/HCPCS: 87081

== ENCOUNTER → 2023-07-18 | Outpatient (CLI) | payer OTHER, MEDICAID, SELFPAY ==
--- NOTE | 2023-07-18 08:25 | US_ITS ---
STUDY: SECOND AND THIRD TRIMESTER OBSTETRICAL ULTRASOUND - LIMITED REASON FOR EXAM: Female, 23 years old growth abnormality LMP: October 28, 2022 PRIOR ULTRASOUND: Comparison is made with prior study dated June 11, 2023. TECHNIQUE: Transabdominal TECHNICAL QUALITY: Adequate. FINDINGS: There is a single intrauterine fetus. The fetus is in a cephalic presentation. There is demonstrated cardiac activity with a heart rate of 143 bpm. There is a normal amniotic fluid volume. The largest amniotic fluid pocket measures 8.3 cm. The amniotic fluid index (BECKY) is 21.7 cm. The placenta is 2 There are Grade 0 placental changes. The cervix was not measured due to position. BIOMETRY: BPD: 9.56 cm: 39 weeks, 0 days HC: 35 cm: 40 weeks, 5 days AC: 36: 40 weeks, 0 days FL: 6.0 cm: 34 weeks, 6 days Age by LMP: 37 weeks, 4 days. ROBERTO by LMP: August 04, 2023. age by prior US: 41 weeks, 1 days. ROBERTO by prior US: July 10, 2023. age by current US: 38 weeks, 6 days. ROBERTO by current US: July 26, 2023. Estimated weight: 3577 grams, +/- 537 grams, 85 percentile. US/OB Limited With Biometrics IMPRESSION: Live intrauterine gestation with a mean gestational age of 41 weeks. The measurements obtained today fall within the normal expected range. Electronically Signed: Reese Sherman MD at 10:41 EST ,
--- OUTSIDE RECORDS SUMMARY | 2023-07-18 08:55 | XMS RPT_ITS | CCD ---
Author Name Unknown Address [address] [place] [address] Organization [facility] Care Team Providers Care Senior Project Manager Name Role Phone Veale PAC, Merrill A [...] Care Provider Unavailabl Shikha Eduardo MD Unavailable [phone] NO, PHYSICIAN Primary Care Unavailable ALEXIS KIRAN, [...] MAGUIRE Referring ALLISON Lyle Attending Bob Sr, [facility] Unavailable Medications Current Medications Medication [...] Quantity: 1 Refills: 11 Ordered: 08-Nov-2021 [place] AVIONICS REPAIR TECHNICIAN-CNM, AVIONICS REPAIR TECHNICIAN-CLEAT THROWER, [place] Start : 08-Nov-2021 Active ibuprofen 200 mg oral tablet (1 source) Nonsteroidal Anti-inflammatory Drug Start: 11-12-2017 ADVIL 200 MG CAPS as needed for pain IBUPROFEN [id number] Merrill Ramirez MOHIT No Reported Medications (5 [...] Body height 160.02 cm No PCP None [employer] Work Phone: 12-10-2022 13:31-0400 Body mass index (BMI) [Ratio] 26.93 kg/m2 No PCP None [employer] Work Phone: 12-10-2022 13:31-0400 Body surface area Derived from formula 1.72 m2 No PCP None [employer] Work Phone: 12-10-2022 13:31-0400 Body weight 68.95 kg No PCP None [employer] Work Phone: 12-10-2022 13:31-0400 Diastolic blood pressure 64 mm[Hg] No PCP None [employer] Work Phone: 12-10-2022 13:31-0400 Systolic blood pressure 118 mm[Hg] No PCP None [employer] Work Phone: 09-04-2022 19:05-0500 Body height 160 cm No Pcp Required [facility] 09-04-2022 19:05-0500 Body temperature 98.24 [degF] No Pcp Required [facility] 09-04-2022 19:05-0500 Diastolic blood pressure 78 mm[Hg] No Pcp Required [facility] 09-04-2022 19:05-0500 Heart rate 90 /min No Pcp Required [facility] 09-04-2022 19:05-0500 Respiratory rate 16 /min No Pcp Required [facility] 09-04-2022 19:05-0500 SaO2% (BldA) [Mass fraction] 97 % No Pcp Required [facility] 09-04-2022 19:05-0500 Systolic blood pressure 117 mm[Hg] No Pcp Required [facility] 07-25-2022 09:10-0500 Body height 160.02 cm Vitaly Denton [facility] [address] Work Phone: 07-25-2022 09:10-0500 Body mass index (BMI) [Ratio] 27.1 kg/m2 [facility] [address] Work Phone: 07-25-2022 09:10-0500 Body surface area Derived from formula 1.73 m2 [facility]italy D[facility] [address] Work Phone: 07-25-2022 09:10-0500 Body weight 69.4 kg Vitaly Denton [facility] [address] Work Phone: 07-25-2022 09:10-0500 Diastolic blood pressure 70 mm[Hg] [facility] [address] Work Phone: 07-25-2022 09:10-0500 Systolic blood pressure 116 mm[Hg] [facility] [address] Work Phone: 03-27-2022 15:20-0400 Body height 160.02 cm Vitaly Denton Work Phone: [facility] [address] Work Phone: 03-27-2022 15:20-0400 Body mass index (BMI) [Ratio] 26.59 kg/m2 Vitaly Denton Work Phone: [facility] [address] Work Phone: 03-27-2022 15:20-0400 Body surface area Derived from formula 1.71 m2 Vitaly Denton Work Phone: [facility] [address] Work Phone: 03-27-2022 15:20-0400 Body weight 68.1 kg Vitaly Denton Work Phone: [place] [address] [address] Work Phone: 03-27-2022 15:20-0400 Diastolic blood pressure 74 mm[Hg] Vitaly Denton Work Phone: [place] [address] [address] Work Phone: 03-27-2022 15:20-0400 Systolic blood pressure 100 mm[Hg] Vitaly Denton Work Phone: [address] Work Phone: 03-08-2022 16:13-0400 Body temperature 98.29 [degF] Tito Espinoza Jr., DPM Work Phone: [facility] 03-08-2022 16:13-0400 Diastolic blood pressure 65 mm[Hg] Tito Espinoza Jr., DPM Work Phone: [facility] 03-08-2022 16:13-0400 Heart rate 67 /min Tito Espinoza Jr., DPM Work Phone: [facility] 03-08-2022 16:13-0400 Systolic blood pressure 105 mm[Hg] Tito Espinoza Jr., DPM Work Phone: [facility] 11-08-2021 09:50-0400 Body height 160.02 cm Vitaly Denton Work Phone: [place] [address] [address] Work Phone: 11-08-2021 09:50-0400 Body mass index (BMI) [Ratio] 26.36 kg/m2 Vitaly Denton Work Phone: [place] [address] [address] Work Phone: 11-08-2021 09:50-0400 Body surface area Derived from formula 1.71 m2 Vitaly Jayashree Corrie Work Phone: [place] [address] [address] Work Phone: 11-08-2021 09:50-0400 Body weight 67.5 kg Vitaly M Corrie Work Phone: [place] [address] [address] Work Phone: 11-08-2021 09:50-0400 Diastolic blood pressure 62 mm[Hg] Vitaly Reavesighton Work Phone: [place] [address] [facility] Work Phone: 11-08-2021 09:50-0400 Systolic blood pressure 110 mm[Hg] Vitaly Willetton Work Phone: [place] [address] [facility] Work Phone: 11-01-2021 10:01-0400 Body height 160.02 cm Vitaly Blanc Corrie Work Phone: [place] [address] [facility] Work Phone: 11-01-2021 10:01-0400 Body mass index (BMI) [Ratio] 26.28 kg/m2 Vitaly Reavesighton Work Phone: [place] [address] [facility] Work Phone: 11-01-2021 10:01-0400 Body surface area Derived from formula 1.7 m2 Vitaly Reavesighton Work Phone: [place] [address] [address] Work Phone: 11-01-2021 10:01-0400 Body weight 67.3 kg Vitaly Blanc Corrie Work Phone: [place] [address] [address] Work Phone: 11-01-2021 10:01-0400 Diastolic blood pressure 70 mm[Hg] Vitaly Denton Work Phone: [place] [address] [address] Work Phone: 11-01-2021 10:01-0400 Systolic blood pressure 102 mm[Hg] Vitaly Denton Work Phone: [place] [address] [address] Work Phone: 07-20-2021 11:05-0500 Body height 160.02 cm Vitaly Denton Work Phone: [facility] [address] [address] Work Phone: 07-20-2021 11:05-0500 Body mass index (BMI) [Ratio] 24.6 kg/m2 Vitaly Denton Work Phone: [place] [address] [address] Work Phone: 07-20-2021 11:05-0500 Body surface area Derived from formula 1.66 m2 Vitaly Denton Work Phone: [facility] [place] [address] [address] Work Phone: 07-20-2021 11:05-0500 Body temperature 97.8 [degF] Vitaly Denton Work Phone: [place] [address] [address] Work Phone: 07-20-2021 11:05-0500 Body weight 63 kg Vitaly Denton Work Phone: [place] [address] [address] Work Phone: 07-20-2021 11:05-0500 Diastolic blood pressure 68 mm[Hg] Vitaly Denton Work Phone: [facility] [address] [address] Work Phone: 07-20-2021 11:05-0500 Systolic blood pressure 100 mm[Hg] Vitaly Denton Work Phone: [facility] [address] [address] Work Phone: NEGATED: Highlighted [id number] 14:11-0400 BMI (Body Mass Index) 24 kg/m2 Dickson ARANDA [facility] Work Phone: NEGATED: Highlighted [id number] 14:0400 BP Diastolic 71 mm[Hg] Dickson Micheline OT-C [facility] Work Phone: NEGATED: Highlighted [id number] 14:110400 BP Systolic 111 mm[Hg] Dickson Micheline OT-C [facility] Work Phone: NEGATED: Highlighted [id number] 14:040 Height 160.02 cm Dickson Micheline OT-C [facility] Work Phone: NEGATED: Highlighted [id number] 14: Height 160 cm Dickson Micheline OT-C [facility] Work Phone: NEGATED: Highlighted [id number] 14:11-0400 Pulse (Heart Rate) 71 /min Dickson Micheline OT-C [facility] Work Phone: NEGATED: Highlighted [id number] 14:110400 Weight 61.24 kg Dickson Micheline OT-C [facility] Work Phone: NEGATED: Highlighted [id number] 14:0400 Weight 61 kg Dickson Micheline OT-C [facility] Work Phone: Encounters Encounter Date Encounter Type Care Provider Facility Start: 03-06-2023 ambulatory ALLISON Copeland [facility] Start: 12-11-2022 ambulatory [facility] Facility: [id number] Start: 12-10-2022 Office outpatient vi sit 15 minutes No PCP None [address] Work Phone: Start: 12-10-2022 ambulatory [facility] Facility: [id number] Start: 09-04-2022 End: 09-04-2022 Emergency department patient visit Jorge Carbajal [facility] Start: 09-04-2022 AUDIT No PCP [facility] Work Phone: Start: 07-25-2022 Periodic preventive med est patient 18-39 yrs Vitaly Denton [id number] Work Phone: Start: 07-25-2022 ambulatory MARIETTA MARISCAL Facility:9 [id number] Start: 03-29-2022 Chart Update Vitaly Lagunas [employer] Work Phone: [employer] Work Phone: Start: 03-28-2022 Chart Update Vitaly Lagunas [employer] Work Phone: [employer] Work Phone: Start: 03-27-2022 Office outpatient vi sit 25 minutes Vitaly Jayashree Denton Work Phone: [employer] Work Phone: Start: 03-27-2022 ambulatory DO SAWYER SKY Fac ility:[id number] Start: 03-08-2022 End: 03-08-2022 ambulatory TITO ESPINOZA JR. [facility] Start: 03-08-2022 End: 03-08-2022 Office outpatient visit 10 minutes Tito Espinoza DPM Work Phone: [facility] Procedures Date Procedure Procedure [...] Start: 02-15-2023 Tetanus vaccination Tetanus: Every 10yrs [facility] Start: 07-25-2022 Patient encounter procedure ANNUAL, Provider: [place] Mariscal, Status: Pen, Time: 9:00 AM [id number] Work Phone: Start: 07-22-2022 Patient encounter procedure ANNUAL, Provider: Sawyer Sky, Status: Pen, Time: 10:30 AM [facility] [employer] Work Phone: Start: 07-20-2022 History and physical examination, annual for health maintenance Wellness Visit [facility] Start: 04-17-2022 End: 04-17-2022 Patient encounter procedure 04/17/2022 Office Visit Podiatry Tito Espinoza Jr., DPM [address] [place] [address] [facility] Start: 04-10-2022 FUV, Provider: Sawyer Sky, Status: Pen, Time: 3:45 PM FUV, Provider: Sawyer Sky, Status: Pen, Time: 3:45 PM [facility] [employer] Work Phone: Start: 03-07-2022 Influenza vaccination Sequential Influenza Vaccine (#1) [facility] Start: 2018 Hepatitis C screening Hepatitis C Screening [facility] Start: 11-12-2017 End: 11-12-2017 Appointment Appointment [facility] Work Phone: Start: 2015 HIV screening HIV Screening [facility] Start: 2012 Depression screening using PHQ-9 (Patient Health Questionnaire 9) score Depression Screening (PHQ-2/9) [facility] Start: 2000 COVID-19 Vaccine (#1) COVID-19 Vaccine (#1) [facility] Start: 2000 Screening for Chlamydia trachomatis Chlamydia Screening [facility] Start: 2000 Screening for malignant neoplasm of cervix Pap Smear [facility] Immunizations Immunization Date Immunization Notes Care Provider Fa cility No information available. Dickson Tobias OT-C [facility] Work Phone: Payers Date Payer Category Payer Private Health Insurance [id number] 2017 Unknown 2017 Private Health Insurance 2000 Unknown [id number] 2.16. [id number] 2000 Unknown [id number] 2.16. [id number] 2000 Unknown [id number] 2.16. [id number] 2000 Unknown [id number] 2.16. [id number] 2000 Unknown [id number] 2.16. [id number] 2000 Unknown [id number] 2.16. [id number] 2000 Unknown [id number] 2.16. [id number] 2000 Unknown [id number] 2.16. [id number] 2000 Unknown [id number] 2.16. [id number] 2000 Unknown [id number] 2.16.8 [id number] 2000 Unknown [id number] 2.16.8 [id number] 2000 Unknown [id number] 2.16. [id number] Medicaid [id number] Social History Date Type Detail Facility Start: 03-08-2022 Sexually active Sexually active [address] Work Phone: Start: 01-25-2022 Tobacco smoking status NHIS Never smoked tobacco [facility] Start: 01-25-2022 Tobacco use and exposure Smokeless tobacco non-user [facility] Start: 03-08-2022 Alcohol intake Current drinke r of alcohol (finding) [facility] Start: 04-08-2021 History SDOH Alcohol Frequency 1 [facility] Start: 12-28-2021 Alcohol Comment rarley [facility] Start: 2000 Sex Assigned At Not on file [facility] Start: 02-26-2022 End: 03-08-2022 Exposure to SARS-CoV-2 (event) Not sure [facility] Tobacco smoking consumption unknown [facility] NEGATED: Highlighted rowStart: 11-12-2017 End: 11-12-2017 Alcohol use ETOH USE No [facility] Work Phone: NEGATED: Highlighted rowStart: 11-12-2017 End: 11-12-2017 Details of drug misuse behavior DRUG USE No [facility] Work Phone: NEGATED: Highlighted rowStart: 11-12-2017 End: 11-12-2017 Employment detail 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 EXERCISEFREQ 5 days per week [facility] Work Phone: NEGATED: Highlighted rowStart: 11-12-2017 End: 11-12-2017 Assertion Never smoker [facility] Work Phone: History of [...] tenderness no cramping bleeding or abnormal discharge. [facility] Work Phone: History of Present illness [...] month consider MRI documented in this encounter [facility] History of Present illness Narrative 02-04-2022 Note [...] out. Patient is no other acute concerns [employer] Work Phone: History of Present illness Narrative 07-07-2021 Note Date & Type Note Facility 07-07-2021 History of Present illness Narrative Pt. presents for annual exam.Normal pap 07/2021irregular bleeding resolved, decided with BF to d/c contraception, open to pregnancyNo complaints or concerns [employer] Work Phone: Evaluation note Note Date & Type Note Facility documented in this encounter [facility] History of Present illness Narrative Note Date & Type Note Facility History of Present illness Narrative Pt. reports increased vaginal d/c, states that it has odor sometimes and then resolvesTx for BV recently, using Nuvaring for contraception and not sure she likes it, but wants to continue for now [employer] Phone: History of Present illness Narrative Note Date & Type Note Facility History of Present illness Narrative Pt. wants to d/c nuvaring and go back to OCP. Disc. transitioning and how to avoid during the transition. [employer] Work Phone: History of Present illness Narrative [...] vaccine. Patient has no other acute concerns [employer] [employer] Work Phone: Advance Directives There may be [...] DATE CREATED AUTHOR AUTHOR'S ORGANIZ ATION 04/15/2021 [facility] DATE CREATED AUTHOR AUTHOR'S ORGANIZ ATION 03/09/2022 [facility] DATE CREATED AUTHOR AUTHOR'S ORGANIZ ATION 12/17/2022 [facility] DATE CREATED AUTHOR AUTHOR'S ORGANIZ ATION 12/17/2022 [facility] DATE CREATED AUTHOR AUTHOR'S ORGANIZ ATION 12/17/2022 [employer] DATE CREATED AUTHOR AUTHOR'S ORGANIZ ATION 03/26/2023 [facility] Reason for Visit (unrecogniz ed section and [...] BE BASED ON THE PRIMARY CLINICAL RECORDS. [facility]. provides no warranty or guarantee of the accuracy or completeness of information in this document.
== END | disposition home or self-care (01) ==
LOC: US 08:23
PROVIDERS: Referring Provider Obstetrics & Gynecology; Visit Provider Obstetrics & Gynecology
DX: O36.60X0 Maternal care for excessive fetal growth, unspecified trimester, not applicable or unspecified (principal); Z3A.00 Weeks of gestation of pregnancy not specified
CPT/HCPCS: 76816

== ENCOUNTER → 2023-07-25 | Outpatient (CLI) | payer OTHER, MEDICAID, SELFPAY ==
--- NOTE | 2023-07-25 12:38 | US_ITS ---
INDICATION: well being EXAMINATION: Ultrasound US Biophysical Profile W/O Nonst TECHNIQUE: Transabdominal pelvic ultrasound was performed. COMPARISON: Prior study dated: 07/18/2023. LMP: 10/28/2022 Beta-hCG: Unknown. Provided EGA: 38 weeks and 4 days FINDINGS: INTRAUTERINE GESTATION(s): Single. HEART MOTION is 133 bpm. AMNIOTIC FLUID INDEX (BECKY): 19.8 cm, largest fluid pocket measures 10.3 cm. BIOPHYSICAL PROFILE (BPP): 02/11 -- Breathin/2. -- Movement: 2/2. -- Tone: 2/2. --BECKY: 2/2. PRESENTATION: Cephalic PLACENTA: Posterior. There is no placenta previa or abruption. CERVIX: Cervix is not visualized. MATERNAL OVARIES: No adnexal masses. FREE FLUID: None. US/Biophysical Prof W/O Non Stres IMPRESSION: Normal biophysical profile with score of 8 out of 8. Electronically Signed: Abundio Simpson MD at 13:41 EST ,
--- OUTSIDE RECORDS SUMMARY | 2023-07-25 12:56 | XMS RPT_ITS | CCD ---
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, [place] Start : 08-Nov-2021 Active ibuprofen 200 mg oral tablet (1 source) Nonsteroidal Anti-inflammatory Drug Start: 11-12-2017 ADVIL 200 MG CAPS as needed for pain IBUPROFEN [id number] Merrill Ramirez MOHIT No Reported Medications (5 [...] Body height 160.02 cm No PCP None [employer] Work Phone: 12-10-2022 13:31-0400 Body mass index (BMI) [Ratio] 26.93 kg/m2 No PCP None [employer] Work Phone: 12-10-2022 13:31-0400 Body surface area Derived from formula 1.72 m2 No PCP None [employer] Work Phone: 12-10-2022 13:31-0400 Body weight 68.95 kg No PCP None [employer] Work Phone: 12-10-2022 13:31-0400 Diastolic blood pressure 64 mm[Hg] No PCP None [employer] Work Phone: 12-10-2022 13:31-0400 Systolic blood pressure 118 mm[Hg] No PCP None [employer] Work Phone: 09-04-2022 19:05-0500 Body height 160 cm No Pcp Required [facility] 09-04-2022 19:05-0500 Body temperature 98.24 [degF] No Pcp Required [facility] 09-04-2022 19:05-0500 Diastolic blood pressure 78 mm[Hg] No Pcp Required [facility] 09-04-2022 19:05-0500 Heart rate 90 /min No Pcp Required [facility] 09-04-2022 19:05-0500 Respiratory rate 16 /min No Pcp Required [facility] 09-04-2022 19:05-0500 SaO2% (BldA) [Mass fraction] 97 % No Pcp Required [facility] 09-04-2022 19:05-0500 Systolic blood pressure 117 mm[Hg] No Pcp Required [facility] 07-25-2022 09:10-0500 Body height 160.02 cm Vitaly Denton [facility] [address] Work Phone: 07-25-2022 09:10-0500 Body mass index (BMI) [Ratio] 27.1 kg/m2 Vitaly Denton [facility] [address] Work Phone: 07-25-2022 09:10-0500 Body surface area Derived from formula 1.73 m2 Vitaly Denton [facility] [address] Work Phone: 07-25-2022 09:10-0500 Body weight 69.4 kg Vitaly Denton [facility] [address] Work Phone: 07-25-2022 09:10-0500 Diastolic blood pressure 70 mm[Hg] Vitaly Denton [facility] [address] Work Phone: 07-25-2022 09:10-0500 Systolic blood pressure 116 mm[Hg] Vitaly Denton [facility] [address] Work Phone: 03-27-2022 15:20-0400 Body height 160.02 cm Vitaly Denton Work Phone: [facility] [address] Work Phone: 03-27-2022 15:20-0400 Body mass index (BMI) [Ratio] 26.59 kg/m2 Vitaly Denton Work Phone: [facility] [address] Work Phone: 03-27-2022 15:20-0400 Body surface area Derived from formula 1.71 m2 Vitaly Denton Work Phone: [facility] [address] Work Phone: 03-27-2022 15:20-0400 Body weight 68.1 kg Vitaly Denton Work Phone: [place] [address] [address] Work Phone: 03-27-2022 15:20-0400 Diastolic blood pressure 74 mm[Hg] Vitaly Denton Work Phone: [place] [address] [address] Work Phone: 03-27-2022 15:20-0400 Systolic blood pressure 100 mm[Hg] Vitaly Denton Work Phone: [address] Work Phone: 03-08-2022 16:13-0400 Body temperature 98.29 [degF] Tito Espinoza Jr., DPM Work Phone: [facility] 03-08-2022 16:13-0400 Diastolic blood pressure 65 mm[Hg] Tito Espinoza Jr., DPM Work Phone: [facility] 03-08-2022 16:13-0400 Heart rate 67 /min Tito Espinoza Jr., DPM Work Phone: [facility] 03-08-2022 16:13-0400 Systolic blood pressure 105 mm[Hg] Tito Espinoza Jr., DPM Work Phone: [facility] 11-08-2021 09:50-0400 Body height 160.02 cm Vitaly Denton Work Phone: [place] [address] [address] Work Phone: 11-08-2021 09:50-0400 Body mass index (BMI) [Ratio] 26.36 kg/m2 Vitaly Denton Work Phone: [place] [address] [address] Work Phone: 11-08-2021 09:50-0400 Body surface area Derived from formula 1.71 m2 Vitaly Jayashree Corrie Work Phone: [place] [address] [address] Work Phone: 11-08-2021 09:50-0400 Body weight 67.5 kg Vitaly M Corrie Work Phone: [place] [address] [address] Work Phone: 11-08-2021 09:50-0400 Diastolic blood pressure 62 mm[Hg] Vitaly Reavesighton Work Phone: [place] [address] [address] Work Phone: 11-08-2021 09:50-0400 Systolic blood pressure 110 mm[Hg] Vitaly Willetton Work Phone: [place] [address] [address] Work Phone: 11-01-2021 10:01-0400 Body height 160.02 cm Vitaly Blanc Corrie Work Phone: [place] [address] [address] Work Phone: 11-01-2021 10:01-0400 Body mass index (BMI) [Ratio] 26.28 kg/m2 Vitaly Reavesighton Work Phone: [place] [address] [address] Work Phone: 11-01-2021 10:01-0400 Body surface area Derived from formula 1.7 m2 Vitaly Reavesighton Work Phone: [place] [address] [address] Work Phone: 11-01-2021 10:01-0400 Body weight 67.3 kg Vitaly Blanc Corrie Work Phone: [place] [address] [address] Work Phone: 11-01-2021 10:01-0400 Diastolic blood pressure 70 mm[Hg] Vitaly Denton Work Phone: [place] [address] [address] Work Phone: 11-01-2021 10:01-0400 Systolic blood pressure 102 mm[Hg] Vitaly Denton Work Phone: [place] [address] [address] Work Phone: 07-20-2021 11:05-0500 Body height 160.02 cm Vitaly Denton Work Phone: [facility] [address] [address] Work Phone: 07-20-2021 11:05-0500 Body mass index (BMI) [Ratio] 24.6 kg/m2 Vitaly Denton Work Phone: [place] [address] [address] Work Phone: 07-20-2021 11:05-0500 Body surface area Derived from formula 1.66 m2 Vitaly Denton Work Phone: [facility] [address] [address] Work Phone: 07-20-2021 11:05-0500 Body temperature 97.8 [degF] Vitaly Denton Work Phone: [place] [address] [address] Work Phone: 07-20-2021 11:05-0500 Body weight 63 kg Vitaly Denton Work Phone: [place] [address] [address] Work Phone: 07-20-2021 11:05-0500 Diastolic blood pressure 68 mm[Hg] Vitaly Denton Work Phone: [facility] [address] [address] Work Phone: 07-20-2021 11:05-0500 Systolic blood pressure 100 mm[Hg] Vitaly Denton Work Phone: [facility] [address] [address] Work Phone: NEGATED: Highlighted [id number] 14:11-0400 BMI (Body Mass Index) 24 kg/m2 Dickson ARANDA [facility] Work Phone: NEGATED: Highlighted [id number] 14:0400 BP Diastolic 71 mm[Hg] Dickson Micheline OT-C [facility] Work Phone: NEGATED: Highlighted [id number] 14:110400 BP Systolic 111 mm[Hg] Dickson Micheline OT-C [facility] Work Phone: NEGATED: Highlighted [id number] 14:040 Height 160.02 cm Dickson Micheline OT-C [facility] Work Phone: NEGATED: Highlighted [id number] 14: Height 160 cm Dickson Micheline OT-C [facility] Work Phone: NEGATED: Highlighted [id number] 14:11-0400 Pulse (Heart Rate) 71 /min Dickson Micheline OT[facility]C [facility] Work Phone: NEGATED: Highlighted [id number] 14:[id number] Weight 61.24 kg Dickson Micheline OT-C [facility] Work Phone: NEGATED: Highlighted [id number] 14:0400 Weight 61 kg Dickson Micheline OT-C [facility] Work Phone: Encounters Encounter Date Encounter Type Care Provider Facility Start: 03-06-2023 ambulatory ALLISON Copeland [facility] Start: 12-11-2022 ambulatory [facility] Facility: [id number] Start: 12-10-2022 Office outpatient vi sit 15 minutes No PCP None [address] Work Phone: Start: 12-10-2022 ambulatory [facility] Facility: [id number] Start: 09-04-2022 End: 09-04-2022 Emergency department patient visit Jorge Carbajal [facility] Start: 09-04-2022 AUDIT No PCP None [facility] Work Phone: Start: 07-25-2022 Periodic preventive med est patient 18-39 yrs Vitaly Denton [facility] [employer] Work Phone: Start: 07-25-2022 ambulatory MARIETTA MARISCAL Facility:[id number] Start: 03-29-2022 Chart Update Vitaly Lagunas [employer] Work Phone: [employer] Work Phone: Start: 03-28-2022 Chart Update Vitaly Lagunas [employer] Work Phone: [employer] Work Phone: Start: 03-27-2022 Office outpatient vi sit 25 minutes Vitaly Jayashree Denton Work Phone: [employer] Work Phone: Start: 03-27-2022 ambulatory DO SAWYER SKY Fac ility:[id number] Start: 03-08-2022 End: 03-08-2022 ambulatory TITO ESPINOZA JR. [facility] Start: 03-08-2022 End: 03-08-2022 Office outpatient visit 10 minutes Tito Espinoza DPM Work Phone: [facility] Procedures Date Procedure [...] Start: 02-15-2023 Tetanus vaccination Tetanus: Every 10yrs [facility] Start: 07-25-2022 Patient encounter procedure ANNUAL, Provider: Marietta Mariscal, Status: Pen, Time: 9:00 AM [facility] Work Phone: Start: 07-22-2022 Patient encounter procedure ANNUAL, Provider: Sawyer Sky, Status: Pen, Time: 10:30 AM [facility] Work Phone: Start: 07-20-2022 History and physical examination, annual for health maintenance Wellness Visit [facility] Start: 04-17-2022 End: 04-17-2022 Patient encounter procedure 04/17/2022 Office Visit Podiatry Tito Espinoza Jr., DPM [address] [place] [address] [facility] Start: 04-10-2022 FUV, Provider: Sawyer Sky, Status: Pen, Time: 3:45 PM FUV, Provider: Sawyer Sky, Status: Pen, Time: 3:45 PM [facility] Work Phone: Start: 03-07-2022 Influenza vaccination Sequential Influenza Vaccine (#1) [facility] Start: 2018 Hepatitis C screening Hepatitis C Screening [facility] Start: 11-12-2017 End: 11-12-2017 Appointment Appointment [facility] Work Phone: Start: 2015 HIV screening HIV Screening [facility] Start: 2012 Depression screening using PHQ-9 (Patient Health Questionnaire 9) score Depression Screening (PHQ-2/9) [facility] Start: 2000 COVID-19 Vaccine (#1) COVID-19 Vaccine (#1) [facility] Start: 2000 Screening for Chlamydia trachomatis Chlamydia Screening [facility] Start: 2000 Screening for malignant neoplasm of cervix Pap Smear [facility] Immunizations Immunization Date Immunization Notes Care Provider Fa cility No information available. Dickson Tobias OT-C [facility] Work Phone: Payers Date Payer Category Payer Private Health Insurance [id number] 2017 Unknown 2017 Private Health Insurance 2000 Unknown [id number] 2.16. [id number] 2000 Unknown [id number] 2.16. [id number] 2000 Unknown [id number] 2.16. [id number] 2000 Unknown [id number] 2.16. [id number] 2000 Unknown [id number] 2.16. [id number] 2000 Unknown [id number] 2.16. [id number] 2000 Unknown [id number] 2.16. [id number] 2000 Unknown [id number] 2.16. [id number] 2000 Unknown [id number] 2.16. [id number] 2000 Unknown [id number] 2.16.8 [id number] 2000 Unknown [id number] 2.16.8 [id number] 2000 Unknown [id number] 2.16. [id number] Medicaid [id number] Social History Date Type Detail Facility Start: 03-08-2022 Sexually active Sexually active [address] Work Phone: Start: 01-25-2022 Tobacco smoking status NHIS Never smoked tobacco [facility] Start: 01-25-2022 Tobacco use and exposure Smokeless tobacco non-user [facility] Start: 03-08-2022 Alcohol intake Current drinke r of alcohol (finding) [facility] Start: 04-08-2021 History SDOH Alcohol Frequency 1 [facility] Start: 12-28-2021 Alcohol Comment rarley [facility] Start: 2000 Sex Assigned At Not on file [facility] Start: 02-26-2022 End: 03-08-2022 Exposure to SARS-CoV-2 (event) Not sure [facility] Tobacco smoking consumption unknown [facility] NEGATED: Highlighted rowStart: 11-12-2017 End: 11-12-2017 Alcohol use ETOH USE No [facility] Work Phone: NEGATED: Highlighted rowStart: 11-12-2017 End: 11-12-2017 Details of drug misuse behavior DRUG USE No [facility] Work Phone: NEGATED: Highlighted rowStart: 11-12-2017 End: 11-12-2017 Employment detail OCCUPATION#1 student [facility] Work Phone: NEGATED: Highlighted rowStart: 11-12-2017 End: 11-12-2017 How many days of moderate to strenuous exercise, like a brisk walk, did you do in the last 7 days? EXERCISEFREQ 5 days per week [facility] Work Phone: NEGATED: Highlighted rowStart: 11-12-2017 End: 11-12-2017 Assertion Never smoker [facility] Work Phone: History of [...] tenderness no cramping bleeding or abnormal discharge. [facility] Work Phone: History of Present illness [...] month consider MRI documented in this encounter [facility] History of Present illness Narrative 02-04-2022 [...] out. Patient is no other acute concerns [employer] Work Phone: History of Present illness Narrative 07-07-2021 Note Date & Type Note Facility 07-07-2021 History of Present illness Narrative Pt. presents for annual exam.Normal pap 07/2021irregular bleeding resolved, decided with BF to d/c contraception, open to pregnancyNo complaints or concerns [employer] Work Phone: Evaluation note Note Date & Type Note Facility documented in this encounter [facility] History of Present illness Narrative Note Date & Type Note Facility History of Present illness Narrative Pt. reports increased vaginal d/c, states that it has odor sometimes and then resolvesTx for BV recently, using Nuvaring for contraception and not sure she likes it, but wants to continue for now [employer] Phone: History of Present illness Narrative Note Date & Type Note Facility History of Present illness Narrative Pt. wants to d/c nuvaring and go back to OCP. Disc. transitioning and how to avoid during the transition. [employer] Work Phone: History of Present illness Narrative [...] vaccine. Patient has no other acute concerns [facility] Work Phone: Advance Directives There may be [...] DATE CREATED AUTHOR AUTHOR'S ORGANIZ ATION 04/15/2021 [facility] DATE CREATED AUTHOR AUTHOR'S ORGANIZ ATION 03/09/2022 [facility] DATE CREATED AUTHOR AUTHOR'S ORGANIZ ATION 12/17/2022 [facility] DATE CREATED AUTHOR AUTHOR'S ORGANIZ ATION 12/17/2022 [facility] DATE CREATED AUTHOR AUTHOR'S ORGANIZ ATION 12/17/2022 [employer] DATE CREATED AUTHOR AUTHOR'S ORGANIZ ATION 03/26/2023 [facility] Reason for Visit (unrecogniz ed section and [...] BE BASED ON THE PRIMARY CLINICAL RECORDS. [facility]. provides no warranty or guarantee of the accuracy or completeness of information in this document.
== END | disposition home or self-care (01) ==
LOC: US 12:36
PROVIDERS: Referring Provider Advanced Practice Midwife; Visit Provider Advanced Practice Midwife
DX: O28.8 Other abnormal findings on antenatal screening of mother (principal); Z3A.00 Weeks of gestation of pregnancy not specified
CPT/HCPCS: 76819

== ENCOUNTER 2023-07-28 04:45 | Inpatient (IN) | payer OTHER, MEDICAID, SELFPAY ==
[2023-07-28] VITALS (119 sets, daily range): BP systolic 91–149; BP diastolic 52–91; PULSE 73–159; RESP 16; TEMP 36.2–37.4; O2SAT 82–100; BMI 33.0
[2023-07-28] MEDS: LACTATED RINGERS 500 ML 999 ML IV (04:27)
[2023-07-28 05:11] LABS: ROM Internal Control Test YES-OK TO RESULT pt. (Internal QC); ROM Patient Test Negative (Negative)
[2023-07-28 05:14] LABS: Absolute Neutrophil Count 8.5 X10^3/uL (2.0-7.7); Basophil# 0.06 X10^3/uL; Basophil% 0.5 % (0-1); Eosinophil# 0.04 X10^3/uL; Eosinophils% 0.4 % (0-5); Hematocrit 34.9 % (37-47); Hemoglobin 11.4 g/dL (12.0-15.0); Lymphocyte % 16.9 % (19-41); Mean Corp Hgb Conc 32.7 g/dL (32-36); Mean Corpuscular Hgb 29.7 pg (27.0-32.0); Mean Corpuscular Volume 90.9 fL (81-99); Mean Platelet Vol. 10.1 fl (6.2-12.0); Monocyte# 0.63 X10^3/uL; Monocyte% 5.6 % (0-10); NRBC Flagged by Analyzer 0 % (0-5); Neutrophil # 8.47 X10^3/uL (2.7-7.7); Neutrophil % 75.4 % (47-70); Platelet Count 191 K/mm3 (150-450); RBC Distribution Width CV 14.5 % (11.6-14.6); RBC Distribution Width SD 47.7 fl (35.1-43.9); Red Blood Count 3.84 M/mm3 (4.2-5.4); White Blood Count 11.2 K/mm3 (4.4-11.0)
--- NOTE | 2023-07-28 05:15 | HP.PCM.OB_ITS ---
HPI - General General Date of Admission: 07/28/23 HPI Narrative SHARRON MOYER, is a 23 F who presents IAL 6 cm regular ctx no vb lof admits good fm. vertex on ultrasound now. polyhydramnios Maternal Data Information ROBERTO Calculator Estimated Delivery Date Method Current WG Current Estimate 08/04/23 Manual 39w 0d PFSH PFSH Medical History No significant medical problems Home Medications multivitamin no.47-iron fum 27 mg-folate no.1 1 mg-dha 300 mg capsule (PNV-DHA) 1 cap PO DAILY 03/21/23 [History Last Taken 06/09/23] ferrous sulfate 325 mg (65 mg iron) tablet (Feosol) 325 mg PO DAILY 06/10/23 [History Last Taken 06/09/23] Allergy/AdvReac Type Severity Reaction Status Date / Time No Known Allergies Allergy Verified 07/25/23 10:32 Family History Grandfather Hypertension Grandmother Hypertension Grandmother Hypertension Grandfather Myocardial infarction Mother Hypertension Surgical History H/O dilation and curettage History of tonsillectomy and adenoidectomy History of wisdom tooth extraction, class IV edentulism Social History adopted: No household members: significant other housing: house current occupational status: employed current occupation: [employer] current occupational exposures/hazards: No pets and animals: Yes history of recent travel: No sexually active: Yes Smoking Status: Never smoker second hand exposure: No alcohol intake: never substance use type: does not use seatbelt use: always do you feel safe at home: Yes 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 Date Name GA/Weeks Outcome Route Bth Weight Infant Gen Labor Lgth Anesthesia Del Locatn Provider FOB 06/09/19 spontaneous Visit Details Expected Delivery Route/Plan Labor Preferences- CB/BF classes: done labor support person: boyfriend Isamar, mom- ahsan labor intervention preferences: minimal but open pain management options preferred: prefers minimal but open to anything cut cord/dad catch: [] : yes PP control planned: undecided discussed possible routes of delivery and associated risks: discussed possible delivery modalities and possible indications for each including R/B/A of , VAVD, and CS. questions answered. special requests: [] Plans Covid status: declined Flu vaccine: delcined Tdap vaccine: declined Rhogam: na LARC form signed: declined movement and labor precautions reviewed Problem list reviewed and updated with the most current plan of care details and appropriate orders placed. Relevant counseling for the gestational age provided. Continue routine care and follow up unless otherwise noted in visit notes/problem list details OB Flowsheet Initial Weight: Not Recorded Date -?-?-?-?-?-?-?-?-?-?-?-?- EGA Weight BP Urine Prot -?-?-?-?-?-?-?-?-?-?-?-?- Glucose FHR FuHt Pres Dilation -?-?-?-?-?-?-?-?-?-?-?-?- Effaced St Visit Note 01/24/23 -?-?-?-?-?-?-?-?-?-?-?-?- 12w 4d 153 lb 2 oz 128/76 -?-?-?-?-?-?-?-?-?-?-?-?- 160 -?-?-?-?-?-?-?-?-?-?-?-?- SM- no vb crampi ng viable IUP seen 02/21/23 -?-?-?-?-?-?-?-?-?-?-?-?- 16w 4d 157 lb 2 oz 106/71 Nega tive -?-?-?-?-?-?-?-?-?-?-?-?- Negative 150 -?-?-?-?-?-?-?-?-?-?-?-?- JV- no lof, vagi nal bleeding, no movement yet. formal scan ordered. 03/21/23 -?-?-?-?-?-?-?-?-?-?-?-?- 20w 4d 165 lb 8 oz 112/72 -?-?-?-?-?-?-?-?-?-?-?-?- 145 -?-?-?-?-?-?-?-?-?-?-?-?- LC- no vb/ctx/lo f. good fm.normal anatomy. 04/18/23 -?-?-?-?-?-?-?-?-?-?-?-?- 24w 4d 171 lb 6 oz 116/80 Nega tive -?-?-?-?-?-?-?-?-?-?-?-?- Negative 150 -?-?-?-?-?-?-?-?-?-?-?-?- SM- no vb lof go od fm no regular ctx 05/16/23 -?-?-?-?-?-?-?-?-?-?--?-?- 28w 4d 177 lb 4 oz 105/63 Nega tive -?-?-?-?-?-?-?-?-?-?-?-?- Negative 135 -?-?-?-?-?-?-?-?-?-?-?-?- JV- glucola done today but pending. wants to think about tdap. has baby shower this weekend. no complaints. 05/27/23 -?-?-?-?-?-?-?-?-?-?-?-?- 30w 1d 183 lb 113/77 -?-?-?-?-?-?-?-?-?-?-?-?- 130 34 -?-?-?-?-?-?-?-?-?-?-?-?- KW- No vb/lof/ct x. good fm. Passed 3 hour glucose. Larc today. Model for [facility] with [facility]. reports measuring 2 weeks ahead. Discussed growth US if FH >dates at next visit. 06/13/23 -?-?-?-?-?-?-?-?-?-?-?-?- 32w 4d 180 lb 112/78 Negative -?-?-?-?-?-?-?-?-?-?-?-?- Negative 140 32 1 -?-?-?-?-?-?-?-?-?-?-?-?- SM- no vb crampi ng SM- no vb cramping co irregu lar ctx still, no cervical change reassurance given, discussed AC over 90%ile 91%ile overall recommend repeating 3 hr GTT 06/27/23 -?-?-?-?-?-?-?-?-?-?-?-?- 34w 4d 179 lb 4 oz 109/75 Nega tive -?-?-?-?-?-?-?-?-?-?-?-?- Negative 165 34 1 -?-?-?-?-?-?-?-?-?-?-?-?- 60 -3 JV- no janay nge in dilation but pt is tearful because she is not sure what to think about her symptoms of fluid leaking and cramping. vaginal exam and rom plus ordered 07/11/23 -?-?-?-?-?-?-?-?-?-?-?-?- 36w 4d 185 lb 6 oz 119/78 Nega tive -?-?-?-?-?-?-?-?-?-?-?-?- Negative 140 39 1 -?-?--?-?-?-?-?-?-?-?-?-?- 60 -3 SM- no vb lof good fm no regular ctx growth us ordered discussed possible IOL depending on mendez score and EFW 07/18/23 -?-?-?-?-?-?-?-?-?-?-?-?- 37w 4d 187 lb 125/78 Negative -?-?-?-?-?-?-?-?-?-?-?-?- Negative 135 41 Cephalic 2 -?-?-?-?-?-?-?-?-?-?-?-?- 60 -3 SM- now po lyhydramnios no regular ctx no vb lof discussed IOL after 39 weeks due to poly, had US today, will get NST next week 07/25/23 -?-?-?-?-?-?-?-?-?-?-?-?- 38w 4d 185 lb 2 oz 112/73 Nega tive -?-?-?-?-?-?-?-?-?-?-?-?- Negative 135 38 Cephalic 3 -?-?-?-?-?-?-?-?-?-?-?-?- 80 -3 kw-no vb/r eg ctx. good fm. nonreactive NST today. BPP 02/11. IOL for 39.1 weeks for poly. Vital Signs Vital Signs Vital Signs: 07/28/23 04:35 07/28/23 04:35 07/28/23 04:35 Temperature Temperature Source Temporal Pulse Rate 85 Blood Pressure 133/71 H BP Systolic 133 BP Diastolic 71 Pulse Ox 07/28/23 04:35 07/28/23 04:35 Temperature 97.4 F L Temperature Source Pulse Rate Blood Pressure BP Systolic BP Diastolic Pulse Ox 99 Weight Weight: 186 lb 8.177 oz Body Mass Index (BMI) 33.0 Labs Labs Labs: Blood Type A POSITIVE Antibody Screen NEGATIVE Hct 34.9 % (37-47) L Hgb 11.4 g/dL (12.0-15.0) L Obstetrics Ultrasound Syphilis Total Ab Non-reactive Rubella IgG Antibody Reactive (Nonreactive) Hep Bs Antigen Non-Reactive (Nonreactive) Hepatitis C Antibody Non-Reactive (Nonreactive) Chlamydia DNA (MARYJANE) Negative (Negative) N.gonorrhoeae DNA (MARYJANE) Negative (Negative) HIV 1&2 Antibody Non-Reactive (Nonreactive) Glucose 1 Hr 50 gm 151 mg/dL (70-140) H Gest Glucose Tolerance MG/DL Group B Strep DNA Negative (Negative) Assessment & Plan (1) Polyhydramnios: COMMENT: weekly nsts, delivery at 39 (2) growth abnormality: COMMENT: repeat 3 hr WNL, 85%ile 07/18. now polyhydramnios. plan 39 week delivery (3) Abnormal glucose: COMMENT: nl 3 hr GTT (4) Anemia: COMMENT: OTC Fe daily (5) Family history of defect: COMMENT: limb body wall defect for sisters child (6) : QUALIFIERS: Weeks of gestation: 37 weeks Qualified Code(s): Z3A.37 - 37 weeks gestation of COMMENT: neg gbs nl anatomy, negative NIPT declined carrier and afp screening, male (7) Supervision of normal : COMMENT: PRR ROBERTO 08/04/23 boy nilesh boyfriend Isamar, mom- ahsan (8) Active labor at term: PLAN: Plan Patient presents IAL, plan expectant management for , pitocin/AROM PRN if needed. Pain management: plans epidural. GBS neg. Management of any complications: none [facility] and made any clinically relevant updates.
[2023-07-28] MEDS: Lactated Ringers 1,000 ML 200 ML IV (05:46)
[2023-07-28] MEDS: fentaNYL-bupivacaine (epidural) 100 ML BAG EPIDURAL ×2 (06:30→11:12)
[2023-07-28 08:47] LABS: Syphilis Antibodies Non-reactive
[2023-07-28] MEDS: Acetaminophen 500 MG Tablet PO (08:48)
[2023-07-28] MEDS: Lactated Ringers 1,000 ML 500 ML IV ×2 (10:33→10:45)
--- NOTE | 2023-07-28 11:56 | PCM.PN.OB ---
Subjective Subjective comfortable with epidural Objective Data Objective Data Vital Signs: Vital Signs Temp Pulse BP Pulse Ox 98.5 F 159 H 104/61 82 07/28/23 10:35 07/28/23 11:52 07/28/23 10:35 07/28/23 11:52 Weight: 186 lb 8.177 oz Body Mass Index (BMI) 33.0 Intake & Output: Intake and Output for Last 24 Hours 07/26/23 07/27/23 07/28/23 23:59 23:59 23:59 Intake Total 1516.67 / 1516.67 Output Total 450 / 450 Balance 1066.67 / 1066.67 Lab / Micro Data 07/28/23 04:45 Labs: Laboratory Results - last 24 hr 07/28/23 04:40: Vag Amniotic Fld Detect Negative 07/28/23 04:45: WBC 11.2 H, RBC 3.84 L, Hgb 11.4 L, Hct 34.9 L, MCV 90.9, MCH 29.7, MCHC 32.7, RDW Std Deviation 47.7 H, RDW Coeff of Carloz 14.5, Plt Count 191, MPV 10.1, Immature Gran % (Auto) 1.200 H, Neut % (Auto) 75.4 H, Lymph % (Auto) 16.9 L, [place] % (Auto) 5.6, Eos % (Auto) 0.4, Baso % (Auto) 0.5, Absolute Neuts (auto) 8.5 H, Absolute Lymphs (auto) 1.90, Nucleated RBC % 0, Syphilis Total Ab Non-reactive, Blood Type Cancelled, Antibody Screen Cancelled 07/28/23 05:15: Blood Type A POSITIVE, Antibody Screen NEGATIVE Physical Exam Resp normal respiratory effort and normal air movement Cardio regular rate and regular rhythm Manual OB Exam: presentation cephalic, dilated 10, effaced and station +1 Extremity normal to inspection Skin no rashes or lesions noted NST FHR Rate Baby A Baseline: 150 Variability:: Moderate Accelerations:: 15 x 15 Decelerations:: Early NST Reactive:: Yes FHR Category:: Category I Uterine Activity:: ctx q3-5 minutes Assessment & Plan (1) Active labor at term: COMMENT: AROM clear fluid at 0850 PLAN: anticipate . actively pushing. held pushing after x2 deep variables, position changes and s/p fluid bolus. now cat 1. reassuring maternal and status to resume pushing. (2) Polyhydramnios: COMMENT: weekly nsts, delivery at 39 PLAN: AROM clear fluid.
[2023-07-28] MEDS: Oxytocin 10 UNITS/ML Vial IM (13:15)
[2023-07-28] MEDS: Oxytocin 15 Units/NS 250ml 15 UNITS/250 ML IV.SOLN 83 UNITS IV (13:19)
--- NOTE | 2023-07-28 13:46 | OP.PCM_ITS ---
Assessment & Plan (1) (spontaneous vaginal delivery): COMMENT: LC IAL boy:Bryan Maternal Data Information ROBERTO Calculator Estimated Delivery Date Method Current WG Current Estimate 08/04/23 Manual 39w 0d Final ROBERTO: 08/04/23 Final ROBERTO Source: LMP Gestational age: 39 Vaginal Delivery Maternal Presentation Maternal Presentation: Active Labor Maternal Presentation: at 39 weeks in active labor. AROM for clear fluid at 9cm, progressed to fully dilated. Operative Information Date of Procedure: 07/28/23 Pre-Operative Diagnosis: see problem list Post-Operative Diagnosis: Surgery / Procedure Performed: Spontaneous Vaginal Delivery Type of Anesthesia: Epidural Estimated Blood Loss: 300 Time of Delivery: 01:08 Findings Description of Procedure: Patient began pushing and delivered the head in the HÉCTOR presentation. The head was delivered atraumatically. The anterior and posterior shoulders delivered without complication followed by the rest of the and the infant was placed on the maternal abdomen. Delayed cord clamping was employed for approximately 60 seconds. Cord was clamped and cut and gentle traction was applied to the cord and the placenta delivered spontaneously immediately following it was noted to be intact with three-vessel cord. The perineum and vagina were inspected and noted to have second degree laceration, repaired in usual sterile fashion. EBL was 300cc. Patient and infant tolerated delivery well.entered recovery phase bonding skin to skin Presentation: Vertex Amniotic Membrane Rupture Type: Artificial Time of Membrane Rupture: 0850 Amniotic Fluid Description: Clear Placental Delivery Description: Spontaneous Placenta Disposition: [facility] Cord Vessel Description: 3 Vessels Cord Entanglement: None Infant A Gender: Male (1 minute): 8 (5 minute): 9 Delayed Cord Clamping: Yes Post Vaginal Delivery Medications Given After Delivery: IV Pitocin and IM Pitocin Procedures Urinary/Genital [id number]: [id number] Vaginal Delivery [facility]
--- NOTE | 2023-07-28 13:50 | DCINST_ITS ---
Discharge Instructions Diet Discharge Diet: No restrictions Activity Discharge Activity: May Not Drive and May Shower May resume sexual activity in: 6 weeks Weight Bearing Status: Full weight bearing Dressing / Incision Call your doctor if your incision/area has: Sudden Increased Bleeding, Increased Pain/ Swelling and Foul Smelling Discharge Call your doctor if you observe: Fever of 101 or Higher, Numbness or Tingling, Change in Color, Inability to urinate, Inability to have a bowel movement, Using more than 1 pad per hour, Shortness of breath, Dizziness, Fainting spells, Chest pain, Calf discomfort and Uncontrolled pain Follow Up Care Please Follow Up With: Melissa Morejon CNM When: 6 weeks , please call office to make an appointment. Congratulations on the of your baby! Test Results: Test results from this visit will be discussed in further detail at your follow- up appointment, if applicable. Discharge Plan Admission Admit Date/Time: 07/28/23 04:45 Attending Provider: Paula Rivera Primary Care Provider: Care Physician,Lorie Primary Discharge Orders/Prescriptions Prescriptions: No Action PNV-DHA 27 mg iron-1 mg -300 mg capsule 1 cap PO DAILY ferrous sulfate [Feosol] 325 mg (65 mg iron) tablet 325 mg PO DAILY Referrals / Follow Up: Care Physician,No Primary [Primary Care Provider] -
[2023-07-29 01:04] VITALS: BP 127/82; PULSE 89; RESP 16; TEMP 36.9
[2023-07-29 03:53] VITALS: BP 119/71; PULSE 110; RESP 16; TEMP 36.9
[2023-07-29] MEDS: Naproxen 500 MG Tablet PO (03:59)
--- NOTE | 2023-07-29 08:17 | PCM.PN.OB ---
Subjective Subjective Patient doing well without complaints. Tolerating PO. Ambulating and voiding without difficulty. Feeding well. Denies chest pain, shortness of breath, calf pain/swelling, fevers, chills, lightheadedness. Objective Data Objective Data Vital Signs: Vital Signs Temp Pulse Resp BP Pulse Ox O2 Del Method 98.4 F 110 H 16 119/71 98 Room Air 07/29/23 03:53 07/29/23 03:53 07/29/23 03:53 07/29/23 03:53 07/28/23 20:51 07/28/23 20:51 Oxygen Delivery Method Room Air Weight: 186 lb 8.177 oz Body Mass Index (BMI) 33.0 Intake & Output: Intake and Output for Last 24 Hours 07/27/23 07/28/23 07/29/23 23:59 23:59 23:59 Intake Total 2766.67 / 2766.67 Output Total 2400 / 2400 Balance 366.67 / 366.67 Lab / Micro Data Attestation: I reviewed the patient's lab results. 07/28/23 04:45 Labs: Laboratory Results - last 24 hr 07/28/23 04:45: Syphilis Total Ab Non-reactive ROS Constitutional Constitutional: Reports systems reviewed and no addt'l complaints, except as documented; Denies anorexia or headache(s) Cardiovascular Cardiovascular: Reports systems reviewed and no addt'l complaints, except as documented; Denies dizziness, dyspnea, nausea or tachypnea Respiratory/Chest Respiratory/Chest: Reports systems reviewed and no addt'l complaints, except as documented; Denies cough, dyspnea, shortness of breath at rest or tachypnea Gastrointestinal Gastrointestinal: Reports systems reviewed and no addt'l complaints, except as documented; Denies abdominal pain, constipation or nausea Genitourinary Genitourinary: Reports systems reviewed and no addt'l complaints, except as documented; Denies burning urination, difficulty urinating, dysuria, urinary frequency or urinary incontinence Musculoskeletal Musculoskeletal: Reports systems reviewed and no addt'l complaints, except as documented Integumentary Integumentary: Reports systems reviewed and no addt'l complaints, except as documented Neurologic Neurologic: Reports systems reviewed and no addt'l complaints, except as documented; Denies abnormal speech, dizziness or headache(s) Psychiatric Psychiatric: Reports systems reviewed and no addt'l complaints, except as documented Endocrine Endocrinology: Reports systems reviewed and no addt'l complaints, except as documented Hematologic/Lymphatic Hematologic/Lymphatic: Reports systems reviewed and no addt'l complaints, except as documented Physical Exam Const alert, oriented x3 and no apparent distress Neck full ROM Resp normal respiratory effort, normal air movement and no retractions Effort and Inspection: able to speak in complete sentences and symmetric chest movement GI soft to palpation Bladder / Kidney Exam: bladder normal to palpation Uterus Palpation: uterus fundus firm Extremity normal to inspection and full ROM Psych mental status grossly normal, thought process normal and cooperative Assessment & Plan (1) (spontaneous vaginal delivery): COMMENT: LC IAL boy:Nilesh PLAN: s/p PPD # 1 1. routine post delivery care 2. breast feeding- support given 3. rh positive 4. rubella immune (2) Active labor at term: COMMENT: AROM clear fluid at 0850 (3) Polyhydramnios: COMMENT: weekly nsts, delivery at 39 (4) growth abnormality: COMMENT: repeat 3 hr WNL, 85%ile 07/18. now polyhydramnios. plan 39 week delivery (5) Abnormal glucose: COMMENT: nl 3 hr GTT (6) Anemia: COMMENT: OTC Fe daily (7) Family history of defect: COMMENT: limb body wall defect for sisters child (8) : QUALIFIERS: Weeks of gestation: 37 weeks Qualified Code(s): Z3A.37 - 37 weeks gestation of COMMENT: neg gbs nl anatomy, negative NIPT declined carrier and afp screening, male (9) Supervision of normal : COMMENT: PRR ROBERTO 08/04/23 boy nilesh boyfriend Isamar, mom- ahsan Charges/Coding Multi Select Codes Urinary/Genital Urinary/Genital CPT Codes: No Charge
[2023-07-29 08:53] VITALS: BP 124/78; PULSE 100; RESP 16; TEMP 36.7; O2SAT 97
[2023-07-29 12:51] VITALS: BP 124/73; PULSE 87; RESP 16; TEMP 36.8; O2SAT 98
[2023-07-29 20:55] VITALS: BP 121/74; PULSE 98; RESP 16; TEMP 36.8; O2SAT 97
[2023-07-30 02:00] VITALS: BP 104/70; PULSE 63; RESP 16; TEMP 36.5; O2SAT 98
--- NOTE | 2023-07-30 07:48 | PCM.PN.OB ---
Subjective Subjective Patient doing well without complaints. Tolerating PO. Ambulating and voiding without difficulty. Feeding well. Denies chest pain, shortness of breath, calf pain/swelling, fevers, chills, lightheadedness. Objective Data Objective Data Vital Signs: Vital Signs Temp Pulse Resp BP Pulse Ox O2 Del Method 97.7 F L 63 16 104/70 98 Room Air 07/30/23 02:00 07/30/23 02:00 07/30/23 02:00 07/30/23 02:00 07/30/23 02:00 07/30/23 02:00 Oxygen Delivery Method Room Air Weight: 186 lb 8.177 oz Body Mass Index (BMI) 33.0 Intake & Output: Intake and Output for Last 24 Hours 07/28/23 07/29/23 07/30/23 23:59 23:59 23:59 Intake Total 2766.67 / 2766.67 Output Total 2400 / 2400 Balance 366.67 / 366.67 Lab / Micro Data 07/28/23 04:45 Physical Exam Const alert and oriented x3 HEENT normocephalic Eyes PERRL Neck full ROM Resp normal respiratory effort GI soft to palpation GI Narrative: FF below U Assessment & Plan (1) (spontaneous vaginal delivery): COMMENT: ADELINA IAL boy:Bryan PLAN: Plan s/p PPD # 2 1. routine post delivery care 2. breast feeding- support given 3. rh positive 4. rubella immune
[2023-07-30 08:00] VITALS: BP 107/80; PULSE 91; RESP 16; TEMP 36.7; O2SAT 96
[2023-07-30] MEDS: Acetaminophen 500 MG Tablet 1000 MG PO (08:53)
[2023-07-30] MEDS: Senna/Docusate Sodium 1 Tablet PO (08:54)
[2023-07-30 11:28] VITALS: BP 129/86; PULSE 85; RESP 16; TEMP 36.8; O2SAT 97
== END 2023-07-30 12:00 | disposition home or self-care (01) | DRG 807 ==
LOC: WPOUT 04:45 → WP 04:45
PROVIDERS: Admitting Provider Obstetrics & Gynecology; Visit Provider Obstetrics & Gynecology
DX: O40.3XX0 Polyhydramnios, third trimester, not applicable or unspecified (principal); Z37.0 Single live birth; O99.814 Abnormal glucose complicating childbirth; D64.9 Anemia, unspecified; O99.02 Anemia complicating childbirth; Z3A.39 39 weeks gestation of pregnancy; Z82.79 Family history of other congenital malformations, deformations and chromosomal abnormalities
CPT/HCPCS: 59050; 76815; 84112; 85025; 86780; 86850; 86900; 86901; 99221; J7120; G0378

== ENCOUNTER → 2024-11-24 | Outpatient (CLI) | payer OTHER, MEDICAID, SELFPAY ==
[2024-11-30 15:06] LABS: HPV Reflexed? NOT INDICATED
== END | disposition home or self-care (01) ==
LOC: LABSPEC 16:10
PROVIDERS: Referring Provider Nurse Practitioner Family; Visit Provider Nurse Practitioner Family
DX: Z12.4 Encounter for screening for malignant neoplasm of cervix (principal)
CPT/HCPCS: 88175; G0145